=== PATIENT | female | born 1945 | race Caucasian/White ===

== ENCOUNTER 2016-06-01 11:26 | Inpatient (IN) | payer OTHER ==
[2016-06-01] MEDS ORDERED: ALBUTEROL NEB INH ONE (11:29)
[2016-06-01] MEDS ORDERED: ATIVAN ONE ×2 (11:29→18:25)
[2016-06-01] MEDS ORDERED: ATROVENT NEB INH ONE (11:29)
[2016-06-01] MEDS ORDERED: SOLU-MEDROL IV ONE (11:29)
[2016-06-01] MEDS ORDERED: DECADRON MISC ONE (11:29)
[2016-06-01 11:41] LABS: ALLEN TEST YES; BE 4.8 mmoll (-3.0-3.0); BLOOD TYPE ARTERIAL; DRAW SITE L RADIAL; METHB 1.5 % (0.0-1.5); O2(CT) 16.7 mL/dL (15.0-23.0); PO2(98.6) 111 mmHg (60-100); SAMPLE BLOOD; SAO2 99.7 % (95.0-100.0); THB 12.2 g/dL (11.5-17.4); pH(98.6) 7.36 (7.35-7.45)
[2016-06-01 11:46] LABS: MODALITY BI PAP; PCO2(98.6) 56 mmHg (35-45)
[2016-06-01] MEDS ORDERED: ATIVAN IV ONE (11:46)
--- NOTE | 2016-06-01 11:48 | PROVIDER DOCUMENTATION ---
HPI-Respiratory General - General Stated Complaint: SOB Time Seen by Provider: 06/01/16 11:28 Source: patient, EMS Allergies/Adverse Reactions: Patient Allergies Allergy/AdvReac Type Severity Reaction Status Date / Time No Known Allergies Allergy Verified 02/27/15 20:52 Home Medications: ATORVAstatin [Lipitor] 80 mg PO DAILY 06/01/16 Alprazolam [Xanax] 0.25 mg PO BID 06/01/16 Aspirin 81 mg PO DAILY 06/01/16 Escitalopram Oxalate [Lexapro] 5 mg PO DAILY 06/01/16 Fluticasone/Salmeterol [Advair 500-50 Diskus] 1 puff INH DIRECTED 06/01/16 Furosemide [Lasix] 80 mg PO BID 06/01/16 Potassium Chloride 20 meq PO DAILY 06/01/16 Prednisone 10 mg PO DIRECTED 06/01/16 Spironolactone 25 mg PO DAILY 06/01/16 Tiotropium Bentley Inhaler [Spiriva] 1 puff INH DIRECTED 06/01/16 - History of Present Illness-Resp Nature of Presenting Problem: Pt is 72 y/o F presents to the ED with SOB. EMS states SOB have been present for three weeks and has worsened as of today. EMS states Pt O2 was 78 on arrival. EMS Pt is on 6L O2 at home. EMS states Pt was diagnosed with pneumonia on May 03 and put on one round of Levaquin. EMS states Pt returned May 18 for check up and had a chest xray done and the pneumonia was still present. EMS states giving Pt 2 breathing treatments [employer]. Quality of Pain: reports: tightness Severity in ED: reports: severe Onset/Duration: reports: other (3 weeks) Timing: reports: still present, getting worse Exposure: reports: unknown cause Cough Quality/Degree: reports: moderate Episode Frequency: frequent episodes Current Respiratory Medication Therapy: Initiated see nurses note Modifying Factors: improves with: nothing Associated Symptoms: reports: cough, hyperventilating, shortness of breath, wheezing. denies: chest pain/soreness, facial pain, fever/chills, headache, nasal congestion Similar Symptoms Previously?: Yes Recently seen or treated by another doctor?: No Review of Systems - Adult - REVIEW OF SYSTEMS - ADULT Constitutional: denies: chills, fever Eyes: denies: blurred vision, double vision Ears, Nose, Mouth & Throat: denies: ear pain, nose pain, throat pain Cardiovascular: reports: irregular heart rate (tachy). denies: chest pain, heart murmur Respiratory: reports: cough, shortness of breath, wheezing Gastrointestinal: denies: abdominal pain, diarrhea, nausea, vomiting Genitourinary: denies: dysuria, hematuria Musculoskeletal: denies: bone pain, joint pain, neck pain Integumentary: denies: hives, itching Neurological: denies: dizziness/vertigo, headache/migraines Psychiatric: reports: no symptoms reported Endocrine: reports: no symptoms reported Hematologic/Lymphatic: reports: no symptoms reported Allergic/Immunologic: reports: no symptoms reported All Other Systems: Reviewed and Negative Past History - Adult - PAST MEDICAL HISTORY-ADULT Review of Records: reports: Nursing Assessment Review, Medications Reviewed, Social history reviewed & non-contributory. Major Childhood Illnesses: reports: denies history Cardiovascular: reports: HTN, hyperlipidemia Respiratory: reports: asthma, COPD, pneumonia Gastrointestinal: reports: denies history Obstetrical/Gynecological: reports: denies history Genitourinary: reports: denies history Musculoskeletal: reports: denies history Neurological: reports: CVA Endocrine/Immune: reports: denies history Other Conditions: reports: denies history - PRIOR SURGERIES/PROCEDURES Surgical/Procedure History: reports: breast - IMMUNIZATION STATUS Childhood Immunizations: See Nurse Assessment Flu Vaccine: See Nurse Assessment - FAMILY HISTORY Family History: reviewed, not pertinent - SOCIAL HISTORY Smoking: quit less than 1 year, cigarettes Provider spent 3-5 mins advising pt. on dangers of tobacco.: Discussed manners to quit use, and f/u contacts for add'l counseling. Substance Use: denies Living Situation: family Physical Exam-General - PHYSICAL EXAM-ADULT Initial Vital Signs Reviewed: Yes - CONSTITUTIONAL General Appearance: appears well, alert, severe distress, anxious - EYES Eyes: PERRL/EOMI, pink conjunctivae - HEAD, EARS, NOSE, MOUTH & THROAT HENMT: normocephalic/atraumatic, moist mucous membranes, normal ENT inspection - NECK Neck: non-tender, full range of motion, supple, normal inspection - RESPIRATORY Respiratory: chest non-tender, decreased breath sounds, accessory muscle use, wheezing, increased rate - CARDIOVASCULAR Cardiovascular: normal peripheral pulses, no edema, tachycardia - GASTROINTESTINAL (ABDOMEN) Abdominal Exam: normal bowel sounds, non tender, soft - LYMPHATIC Lymphatic: no adenopathy - MUSCULOSKELETAL Back Exam: normal inspection, no CVA tenderness, no vertebral tenderness Extremity: normal range of motion, non-tender, normal gait - SKIN Integumentary: normal color, normal turgor, warm/dry - NEUROLOGIC Neurologic: clearance rep II-XII nml as tested, grossly normal, no motor/sensory deficits - PSYCHIATRIC Psych/Mental Status: normal mood/affect, normal thought content, normal thought process, oriented x 3 Progress - PLAN OF CARE/RESULTS Progress/Plan/Lab Results: Laboratory Tests 06/01/16 11:36 Specimen Type ARTERIAL Sample Site L RADIAL pH 7.36 pCO2 56 H* pO2 111 H HCO3 28.7 H Base Excess 4.8 H Oxyhemoglobin 96.3 ABG O2 Sat (Calculated) 16.7 ABG O2 Saturation 99.7 ABG Carboxyhemoglobin 2.00 ABG Methemoglobin 1.5 Joseph Test YES A-a O2 Difference 176.0 Total Hemoglobin 12.2 Lactate 1.30 Blood Gas Modality BI PAP Vent Mode BIPAP FiO2 % 50.0 Inspiratory BiPAP 16.0 Expiratory BiPAP 6.0 Orders Category Date Time Status Cardiac Monitoring DIRECTED Care 06/01/16 11:29 Active Saline Loc NOW Care 06/01/16 11:29 Active CHEST-PORTABLE [RAD] Stat Exams 06/01/16 11:29 Ordered ABG [RESP] Routine Lab 06/01/16 11:36 Completed BLOOD CULTURE [BLDCUL] Stat Lab 06/01/16 11:43 Ordered CBC WITH ELECTRONIC DIFF [HEME] Stat Lab 06/01/16 11:43 Ordered CK PROFILE [SP CHEM] Stat Lab 06/01/16 11:43 Ordered COMPREHENSIVE METABOLIC PANEL [CHEM] Stat Lab 06/01/16 11:43 Ordered D-DIMER [CHEM] Stat Lab 06/01/16 11:43 Ordered MAGNESIUM [CHEM] Stat Lab 06/01/16 11:43 Ordered PRO B-NATRIURETIC PEPTIDE Stat Lab 06/01/16 11:43 Ordered PROTIME WITH INR [COAG] Stat Lab 06/01/16 11:43 Ordered PTT [COAG] Stat Lab 06/01/16 11:43 Ordered TROPONIN T Stat Lab 06/01/16 11:43 Ordered Albuterol [Albuterol Neb] Med 06/01/16 11:29 Discontinued 10 mg INH NOW ONE Dexamethasone [Decadron] Med 06/01/16 11:29 Discontinued 4 mg MISC NOW ONE Ipratropium Bentley Neb [Atrovent Neb] Med 06/01/16 11:29 Discontinued 0.5 mg INH NOW ONE Lorazepam [Ativan] Med 06/01/16 11:46 Discontinued 1 mg IV NOW ONE Lorazepam [Ativan] Med 06/01/16 11:29 Discontinued 2 mg .ROUTE .STK-MED ONE Methylprednisolone Sod Succ [Solu-Medrol] Med 06/01/16 11:29 Discontinued 125 mg IV NOW ONE Aerosol Treatments Routine Oth 06/01/16 11:32 Completed Aerosol Treatments Stat Oth 06/01/16 11:32 Completed EKG [EKG] Stat Ther 06/01/16 11:28 Ordered - EKG 1 Time of EKG reading by physician:: 11:38 EKG Read and Signed by:: Tramaine Street EKG Interpretation (*Must complete 3 of following elements*): Abnormal Rate: 131 Rhythm: sinus tachycardia Comments: nonspecific ST abnormality - XRAY 1 XRAY: Bilateral XRAY Study: Chest Impression: Abnormal XRAY Interpretation: mild pulmonary edema; emphysema - CONSULTS/PCP/HOSPITALIST Notification #1 *Consult/PCP/Hospitalist*: Dr. Whittington Time Discussed: 13:13 (Dr. Whittington accepted admit ) Reason/Comments: Dr. Street consulted with Dr. Whittington about admit of PT Consult Disposition: Admit Departure - Departure Time of Disposition Order: 13:03 DIAGNOSIS: COPD exacerbation, Respiratory distress CHF exacerbation Qualifiers: Congestive heart failure type: unspecified congestive heart failure type Qualified Code(s): I50.9 - Heart failure, unspecified Disposition: ADMITTED INPATIENT 09 Certified Medical Emergency: Emergent Condition: Stable Additional Instructions: ED Follow Up Instructions: You have been treated by a care provider in the Emergency Department. These instructions are being provided to you so you can have an understanding of how to care for yourself upon discharge. Upon discharge from the Emergency Department, you are responsible for making arrangements for follow-up care by a physician of your choice. Take all prescribed medications as directed. Return to the Emergency Department immediately for any new or worsening symptoms. You may call the Physician Referral phone number at [phone] to obtain a list of Physicians who are taking new patients. Referrals: None,PCP [Primary Care Provider] - Attestation - Scribe Verification/Attestation Scribe:: Keisha Carter Acting as Scribe for:: Tramaine Street Scribe documention review:: This chart was documented by a scribe and accurately reflects the service the provider performed and the decisions made by the provider.
[2016-06-01 12:04] LABS: BASO% 0.5 % (0.0-0.8); EOS# 0.06 X1000 (0.0-0.7); EOS% 0.4 % (0.0-10.0); HEMOGLOBIN 12.2 g/dL (12.0-16.0); IMM GRAN# 0.13 X1000 (0.0-0.04); IMM GRAN% 0.9 % (0.0-0.5); LYMPH# 3.76 X1000 (1.2-3.4); LYMPH% 25.3 % (20.5-51.1); MANUAL DIFF NEEDED? NO; MCH 25.9 PG (27-31); MCHC 31.3 g/dL (33-37); MCV 82.8 FL (81-99); MONO# 1.69 X1000 (0.11-0.59); MONO% 11.3 % (1.7-9.3); NEUT% 61.6 % (42.2-75.2); PLT 406 X1000 (130-400); RBC 4.71 XMIL (4.2-5.4)
[2016-06-01 12:06] LABS: AGAP 17; ALBUMIN 4.1 g/dL (3.5-5.0); ALKALINE PHOSPHATASE 86 U/L (32-104); BUN 15 mg/dL (8-22); CALCIUM 9.1 mg/dL (8.8-10.2); CHLORIDE 90 mmol/L (98-107); COSMO 273; GOT 46 U/L (10-30); GPT 17 U/L (10-36); MAGNESIUM 1.8 mg/dL (1.5-2.7); POTASSIUM 4.5 mmol/L (3.5-5.1); SODIUM 135 mmol/L (136-145); TCO2 28 mmol/L (25-35); TOTAL BILIRUBIN 0.35 mg/dL (0.20-1.00); TOTAL PROTEIN 7.5 g/dL (6.3-8.3)
--- NOTE | 2016-06-01 12:08 | Diag Imaging Result Document ---
PROCEDURE NAME: CHEST-PORTABLE - 06/01/2016 PORTABLE CHEST: COMPARISON: 02/27/2015. FINDINGS: The lungs are hyperexpanded. The heart is not enlarged. There are bilateral breast implants. No pleural effusion is identified. Mild increased interstitial markings. These are most pronounced in the upper right suprahilar region. IMPRESSION: 1. Increased interstitial markings likely representing mild pulmonary edema. 2. Suspect fibrosis in the upper right lung. 3. Emphysema.
[2016-06-01 12:09] LABS: CK PROFILE 447 U/L (24-173)
[2016-06-01] MEDS ORDERED: FLAGYL PO ONE (12:16)
[2016-06-01] MEDS ORDERED: LEVAQUIN PO ONE (12:16)
[2016-06-01] MEDS ORDERED: LASIX IV ONE (12:20)
[2016-06-01] MEDS ORDERED: LASIX ONE (12:21)
[2016-06-01 12:29] LABS: CK INDEX 1.7 (0.0-2.5); CK-MB 7.72 ng/mL (0.0-5.0)
[2016-06-01 12:36] LABS: INR 1.06; PROTIME 11.2 Seconds (9.2-11.7); PTT 26.8 Seconds (22.0-36.0)
--- NOTE | 2016-06-01 12:54 | EKG Report ---
Test Performed on : 06/01/2016 11:38:58 AM Test Reason : SOB Blood Pressure : / mmHG Vent. Rate : 131 BPM Atrial Rate : 131 BPM P-R Int : 126 ms QRS Dur : 066 ms QT Int : 288 ms P-R-T Axes : 051 -03 069 degrees QTc Int : 425 ms Sinus tachycardia. Nonspecific ST abnormality Abnormal ECG When compared with ECG of 27-FEB-2015 22:54, Criteria for Inferior infarct are no longer present ST now depressed in Lateral leads T wave amplitude has increased in Lateral leads Unconfirmed Result
[2016-06-01] MEDS ORDERED: LEVAQUIN 750 MG/D5W 150 ML IV ONE (13:12)
[2016-06-01 17:06] LABS: ALLEN TEST YES; BE 5.2 mmoll (-3.0-3.0); BLOOD TYPE ARTERIAL; DRAW SITE L RADIAL; METHB 1.7 % (0.0-1.5); O2(CT) 15.8 mL/dL (15.0-23.0); PO2(98.6) 88 mmHg (60-100); SAMPLE BLOOD; SAO2 99.2 % (95.0-100.0); THB 11.7 g/dL (11.5-17.4); pH(98.6) 7.37 (7.35-7.45)
[2016-06-01 17:11] LABS: MODALITY BI PAP; PCO2(98.6) 55 mmHg (35-45)
--- NOTE | 2016-06-01 17:21 | Diag Imaging Result Document ---
PROCEDURE NAME: CT THORAX W/CONTRAST - 06/01/2016 CT OF THE CHEST WITH INTRAVENOUS CONTRAST: COMPARISON: The current study is compared with that of 05/02/2016. FINDINGS: There are no abnormal fluid collections. There is no evidence of filling defect in the pulmonary arteries. Considering the lack of contrast on the previous study, there is no evidence of significant adenopathy or significant change in the mediastinum. There are emphysematous changes. Fibrotic scar formation is noted in the right upper lobe. The nodule/mass which was described on the previous study has not changed appreciably. There are some tree-in-bud opacities present in the superior segment of the right lower lobe, which were not present previously. This is also true of the area in the azygoesophageal recess. There are irregular opacities present in the medial posterior left costophrenic sulcus, which are similar in appearance to those present on the previous study. IMPRESSION: COPD with pneumonitis or early pneumonia in the right lower lobe. Otherwise stable since 05/02/2016.
--- NOTE | 2016-06-01 17:31 | HISTORY AND PHYSICAL ---
PCP: Dr. Silver Darnell. CHIEF COMPLAINT: Shortness of breath. HISTORY OF PRESENT ILLNESS: Mrs. Apodaca is 71-year-old female with a history of COPD on home oxygen, congestive heart failure, hypertension and hyperlipidemia who presents with severe shortness of breath that has been progressively worse over the past week. She was actually treated for pneumonia with oral antibiotics by Dr. Darnell at the end of last month but since then she has not had any relief in her shortness of breath. She has had increasing cough with yellow sputum production. She has also had subjective fever and chills. She reports lower extremity edema and occasional chest pain as well. 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 Further evaluation was recommended. The patient is also complaining of severe throat pain, difficulty swallowing and throat fullness. She has been unable to really eat or drink anything secondary to the throat pain. The patient when she arrived was in significant respiratory distress and required BiPAP therapy. Initial ABG actually showed only mild respiratory acidosis but she is breathing 30-40 times a minute currently. We are repeating another ABG now. We did discuss possible need for intubation and whether that is something that she would want. She did say that she was unsure at this time. Given her clinical picture, we are going to place her in the ICU and consult with pulmonology. PAST MEDICAL HISTORY: 1. COPD on home oxygen. 2. Congestive heart failure, type unknown. We do not have an echocardiogram on file. 3. Hypertension. 4. Hyperlipidemia. PAST SURGICAL HISTORY: She has had breast implants and a tubal ligation. SOCIAL HISTORY: Patient states that she quit smoking around 5 years ago. She denies alcohol or drug use. She is . She does have family here in [place]. FAMILY HISTORY: Mother with lung cancer. REVIEW OF SYSTEMS: Ten-point review of systems obtained and found to be negative with the exception of the HPI. PHYSICAL EXAMINATION: VITAL SIGNS: Blood pressure is 132/74, heart rate 111, respiratory rate is 33, O2 saturation is 95% on 4 L nasal cannula, temperature is 99.6 degrees. GENERAL: This is a critically ill-appearing, chronically appearing, disheveled and overall malnourished appearing 71-year-old female lying in hospital bed in respiratory distress. NEUROLOGIC: She is awake and anxious. She does follow commands without focal deficits. HEENT: Head is atraumatic, normocephalic. Pupils are equal, round, and reactive to light. Oral mucosa is dry. Trachea is midline. Oropharynx is quite red and edematous. CHEST: Extremely tight throughout but no appreciable wheezes. She does have occasional crackles in the bases. Her respiratory rate is in the 30s to 40s. Her chest rises symmetrically. CARDIOVASCULAR: Tachy but regular. S1-S2 is noted. No murmurs, gallops, clicks, or rubs. GI: Soft, nondistended, nontender. EXTREMITIES: 1+ edema bilaterally. Pulses are diminished. DIAGNOSTIC DATA: Chest x-ray shows interstitial increased markings likely representing mild pulmonary edema, suspected fibrosis in the right upper lung and emphysema. EKG shows sinus tachycardia with nonspecific ST changes. Blood work. WBC 14.89, hemoglobin 12.2, hematocrit 39, platelet count 406,000. Coagulations within normal limits. ABG on BiPAP 50% O2 , pH 7.36, CO2 56, O2 111, bicarb 28.7. Sodium 135, potassium 4.5, chloride 90, CO2 28, anion gap 17, BUN 15, creatinine 0.8, glucose 140, calcium 9.1, magnesium 1.8, AST 46, ALT 17, CK 447 , CK-MB 7.72, proBNP 264. Lactate 1.5. ASSESSMENT AND PLAN: 1. Acute hypoxic and hypercapnic respiratory failure: Likely multifactorial secondary to chronic obstructive pulmonary disease exacerbation and pneumonia. Will continue to try and increase her ventilation and oxygenation with BiPAP, we will treat her underlying COPD with steroids, nebulizers, antibiotics and aggressive pulmonary toilet. We will consult Cardiology and check daily chest x-rays as well as ABGs as needed. 2. Community-acquired pneumonia, failed outpatient treatment: Blood cultures have been obtained. Broad-spectrum antibiotics have also been initiated and pulmonary has been consulted. 3. Sepsis: Patient meets criteria for sepsis with tachycardia, leukocytosis and low-grade fever, tachypnea and pneumonia as a source. Blood culture, sputum cultures have been obtained. Continue broad-spectrum antibiotics and fluid resuscitation. Currently her blood pressure is stable and her lactic acid is within normal limits. 4. Chronic obstructive pulmonary disease exacerbation: As above. 5. 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 We will keep her NPO and continue antibiotics, we will swab for flu and strep as well. 6. Questionable lung cancer: The patient has evidence of carcinoma on CT last month. We are going to repeat a CTA with contrast now. We will also CT her neck, chest, abdomen and pelvis. Pulmonary has been consulted. Patient will likely need a biopsy. 7. History of congestive heart failure: Patient does not know what her ejection fraction is. We do not have any recent studies. Will check an echocardiogram and rule out PA with cardiac enzymes. Depending on the outcome she may need cardiology consultation. We will also lightly diuresis, follow strict I and Os and daily weights. 8. Gastrointestinal prophylaxis will be provided with Protonix. Deep vein thrombosis prophylaxis with Lovenox. Further recommendations to follow. Critical care time with this patient is 35 minutes. Dictated by KEO Jaime for Jani Whittington MD Patient seen and evaluated by Dov and I agree with RAMIRO Barahona's plans. Admit to ICU for worsening respiratory failure. Oxygen by BIPAP and recheck ABG later tonight. Consult to Pulmonology. Critically ill. Keep in ICU. Critical care time spent 29 min non including other separately billable procedures. ELIER
[2016-06-01] MEDS ORDERED: SPIRIVA INH SCH (17:37)
[2016-06-01] MEDS ORDERED: ADVAIR 500/50 DISKUS INH SCH (17:37)
[2016-06-01] MEDS ORDERED: VANCOMYCIN IV PER PHARMACY MISC SCH (17:37)
[2016-06-01 18:13] LABS: FREE T4 1.36 ng/dL (0.93-1.70)
[2016-06-01] MEDS: PROTONIX IV SCH (18:21)
[2016-06-01] MEDS: LOVENOX SUBQ SCH (18:21)
[2016-06-01] MEDS: SODIUM CHLORIDE 0.9% INJ SCH (18:21)
[2016-06-01] MEDS: NS 1,000 ML IV SCH (18:22)
[2016-06-01] MEDS: ZOSYN 3.375 GM/NS 50 ML IV SCH ×2 (18:22→23:53)
[2016-06-01] MEDS ORDERED: ATIVAN IV PRN (18:23)
[2016-06-01] MEDS: SOLU-MEDROL IV SCH (19:19)
[2016-06-01] MEDS ORDERED: VANCOMYCIN 1,450 MG in NS 250 ML IV ONE (20:00)
[2016-06-01] MEDS: DUONEB (A & A) INH SCH (20:37)
[2016-06-01] MEDS: XANAX PO SCH (21:06)
[2016-06-01 22:22] LABS: CK INDEX 2.2 (0.0-2.5); CK-MB 7.44 ng/mL (0.0-5.0)
[2016-06-02] MEDS: ATIVAN IV PRN ×3 (01:47→15:21)
[2016-06-02] MEDS: DUONEB (A & A) INH PRN ×2 (01:58→10:47)
[2016-06-02] MEDS: SOLU-MEDROL IV SCH ×3 (03:12→20:38)
[2016-06-02 05:00] LABS: ALLEN TEST YES; BLOOD TYPE ARTERIAL; DRAW SITE R RADIAL; METHB 1.7 % (0.0-1.5); O2(CT) 14.5 mL/dL (15.0-23.0); PO2(98.6) 80 mmHg (60-100); SAMPLE BLOOD; pH(98.6) 7.34 (7.35-7.45)
[2016-06-02 05:01] LABS: MODALITY BI PAP; PCO2(98.6) 64 mmHg (35-45)
[2016-06-02] MEDS: ZOSYN 3.375 GM/NS 50 ML IV SCH ×3 (05:05→17:01)
[2016-06-02 05:45] LABS: HEMATOCRIT 35.2 % (37.0-47.0); HEMOGLOBIN 10.9 g/dL (12.0-16.0); MCH 26.2 PG (27-31); MCV 84.6 FL (81-99); MPV 9.8 FL (7.4-10.4); RBC 4.16 XMIL (4.2-5.4)
[2016-06-02] MEDS: DUONEB (A & A) INH SCH ×5 (06:07→19:54)
[2016-06-02 06:36] LABS: AGAP 20; BUN 19 mg/dL (8-22); CALCIUM 8.9 mg/dL (8.8-10.2); CHLORIDE 96 mmol/L (98-107); COSMO 285; POTASSIUM 3.9 mmol/L (3.5-5.1); SODIUM 141 mmol/L (136-145); TCO2 25 mmol/L (25-35)
[2016-06-02 06:37] LABS: CK INDEX 2.8 (0.0-2.5); CK-MB 6.78 ng/mL (0.0-5.0)
--- NOTE | 2016-06-02 09:05 | Diag Imaging Result Document ---
PROCEDURE NAME: NECK W/CONTRAST - 06/02/2016 CT OF THE NECK WITH INTRAVENOUS CONTRAST: FINDINGS: The nasopharynx is unremarkable in appearance. There are no parapharyngeal masses or fluid collections. The study is somewhat suboptimal due to patient motion, however. The salivary glands are symmetrical in appearance. The epiglottis is not enlarged. The larynx is grossly normal appearance, considering the motion artifact. There is no evidence of significant adenopathy. The emphysematous change and right upper lobe mass(s) are again noted. IMPRESSION: Suboptimal study. No definite abnormality in the neck.
[2016-06-02] MEDS: NS 1,000 ML IV SCH (09:09)
--- NOTE | 2016-06-02 09:15 | Diag Imaging Result Document ---
PROCEDURE NAME: CT ABD/PELVIS W/ IV CONT ONLY - 06/02/2016 CT OF THE ABDOMEN WITH INTRAVENOUS CONTRAST: FINDINGS: There are some slight tree-in-bud opacities in the lung bases and suggestion or peribronchial thickening, which may be due to chronic bronchitis. There is a more well-defined opacity present in the posteromedial costophrenic sulcus of the left lower lobe measuring 13 mm in diameter. This is worse than on the previous study of 05/02/2016, but essentially stable since 06/01/2016. The possibility of a metastasis cannot be excluded. There is considerable respiratory motion. The adrenal glands are not enlarged. The spleen is not enlarged. The pancreas is normal in appearance. The kidneys are without evidence of hydronephrosis or mass. The liver is unremarkable. There are atherosclerotic calcifications in the aorta. The mesenteric vessels are patent. There is no evidence of significant adenopathy or abnormal fluid collection. CT OF THE PELVIS WITH INTRAVENOUS CONTRAST: FINDINGS: There is some subcutaneous gas over the right side, which is probably duet to subcutaneous injection. There is no evidence of appendicitis. There is a Daniels catheter in the bladder. There is mild diverticulosis in the sigmoid colon. There are no masses or adenopathy. There is calcium pyrophosphate deposition in the symphysis pubis and degenerative changes, generally, in the lumbar spine. IMPRESSION: No evidence of acute disease in the abdomen.
[2016-06-02] MEDS: LEXAPRO PO SCH (09:44)
[2016-06-02] MEDS: ALDACTONE PO SCH (09:44)
[2016-06-02] MEDS: ASPIRIN PO SCH (09:44)
[2016-06-02] MEDS: LIPITOR PO SCH (09:44)
[2016-06-02] MEDS: XANAX PO SCH ×2 (09:44→20:38)
--- NOTE | 2016-06-02 10:48 | PROGRESS NOTE ---
DATE: 06/02/2016 SUBJECTIVE: This patient is on BiPAP at this moment. We will try to put her on a nonrebreathing mask and, if she tolerates this, we can hold the BiPAP. Also, we will ask for a bedside swallow evaluation. This patient has been n.p.o. We will try with ice chips and then, if she tolerates, we can advance the diet. This patient looks anxious, but she is alert. She is oriented x3. I do not see any focal neurological deficits. She is still complaining of shortness of breath and cough. OBJECTIVE: Vital Signs: Temperature 98.3 degrees, pulse 108, respiratory rate 30, blood pressure 130/79, O2 saturation 95% on BiPAP. HEENT: Head normocephalic. No trauma. PERRLA. Neck supple. No JVD. No masses. Cardiovascular: RRR. No murmurs. Tachycardic. Chest: Decreased breath sounds globally. Generalized wheezing, prolonged expiatory phase. Abdomen soft, nontender, nondistended. No hepatosplenomegaly. Extremities: 1+ edema bilaterally. Pulses are diminished. No cyanosis. Neurologic: The patient is alert, anxious, oriented x3 complaining of [id number] respiratory distress. No focal neurological deficits. LABORATORY: WBC 10.2, hemoglobin 10.9, hematocrit 35.2, platelets 352,000. Sodium 141, potassium 3.9, chloride 96, bicarbonate 25. BUN 19, creatinine 0.8, glucose 131, calcium 8.9. ASSESSMENT AND PLAN: 1. Acute hypoxic and hypercapnic respiratory failure likely secondary to chronic obstructive pulmonary disease and pneumonia. This patient is using BiPAP. We will try to wean her off this treatment and put her on a nonrebreathing mask. If she tolerates that and the oxygen saturation does not drop, we will continue with this treatment. Also, a swallow evaluation is going to be done today at bedside to decide if this patient can take her p.o. medications and also to see if she can receive food. We are going to continue with daily ABGs and chest x- ray. Pulmonary Department has been consulted. 2. Community-acquired pneumonia. Failed outpatient treatment. Blood cultures, so far, negative. Influenza A and B negative. 3. Throat group A strep rapid antigen negative. We will continue with broad spectrum antibiotics and will monitor. 4. Sepsis. We will continue monitoring this patient. This patient still has tachycardia, but the blood pressure is controlled, and the leukocytosis decreased from 14.8-10.2. We will continue monitoring and treatment. 5. Chronic obstructive pulmonary disease exacerbation as above. 6. Throat pain likely related to multiple cough. We did a throat culture, pending, resolved. Negative rapid Strep test and influenza. 7. Questionable lung cancer. Apparently, this patient has carcinoma. We consulted the Pulmonary Department to evaluate this patient. We will follow their recommendation. 8. History of heart failure. The patient does not have any information with her. We do not have any records of heart failure. We will ask for an echocardiogram. CRITICAL CARE TIME: 40 minutes.
--- NOTE | 2016-06-02 13:33 | ECHO REPORT ---
ORDER DATE: 06/01/2016 STUDY: 2D, M-mode, color Doppler examination. TECHNIQUE: This is a technically limited study. INTERPRETATION: 1. The left ventricle is difficult to fully visualize but appears normal in size without obvious hypertrophy and with preserved overall systolic function. Estimated left ventricular ejection fraction is at least 60% or greater. 2. The left and right atria are intact. The right ventricle has preserved function. 3. There is no obvious pericardial effusion. There is an anterior echolucent space noted. This is consistent with fat pad. 4. The aortic valve is trileaflet. The leaflets are sclerotic without evidence for stenosis or insufficiency. 5. The mitral valve is intact. 6. The tricuspid valve is poorly visualized. 7. The peak pulmonary artery pressure is estimated to be around 35-40 mmHg.
--- NOTE | 2016-06-02 14:11 | CONSULTATION ---
DATE OF CONSULTATION: 06/02/2016 Thank you very much for asking me to see this very unfortunate 71-year-old female. I am pleased to assist in her care. DIAGNOSES: 1. Acute respiratory failure as a consequence of obesity, hypoventilation and chronic obstructive pulmonary disease. 2. Right lower lobe chest mass. 3. History of ethanol abuse. 4. Hypertension. 5. LV dysfunction. RECOMMENDATIONS: She will have bronchodilators delivered as well as broad- spectrum antibiotics. Inhaled beta agonists. I will wean her CPAP to nasal oxygen as her blood gas is improved. Monitor her volume status. Ultimately there needs to be an evaluation of the right lower lobe chest mass with fiberoptic bronchoscopy or CT-directed needle biopsy as it is apparently fairly suggestive of a neoplasm. I discuss this with the son. I will follow closely along with you. HISTORY: This very unfortunate 71-year-old female white with a known history of COPD and is oxygen and bronchodilator dependent at home. She however has a smoking history of approximately 50 pack year history and quit [address] scan was done previously in April demonstrating right lower lobe mass and this was redetected on the CT today. Subsequently she developed increasing lethargy and hypoxemia and presented to the emergency room where she was admitted to the ICU on CPAP and I am consulted to assist in her care. She had seen Dr. Zhou in [place] in the past but has never been worked up or followed here for her COPD. PAST MEDICAL HISTORY: Positive for COPD, as mentioned above. Congestive heart failure. Hypertension. Hyperlipidemia. SOCIAL HISTORY: She lives at home with her family. She is on home oxygen and bronchodilators. She does not currently drink. She does not currently smoke. PAST SURGICAL HISTORY: Positive for bilateral tubal ligation/BTL as well as bilateral breast implants in the past. FAMILY HISTORY: Positive for lung cancer. PHYSICAL EXAMINATION: Vital Signs: This kind, elderly lady shows a blood pressure of 124/72 with a pulse 101, respirations 24, temperature 96.9 degrees. HEENT: Reveals no thyromegaly or adenopathy. Pupils are equal and reactive. Extraocular muscles are intact. She has a BiPAP mask on. Chest: Reveals bilateral equal breath sounds with rhonchi and crackles. There is some prolongation of the expiratory phase. There are expiratory wheezes. There are symmetrical excursions. Cardiac: Reveals a regular rhythm without an appreciable murmur. Abdomen: Soft, nontender, mildly distended. Normal bowel sounds. Extremities: Reveal edema. Skin: Without rashes. Neurologically: She is awake and cooperative. Moves all 4. DIAGNOSTIC DATA: Her CT of the chest and x-ray shows hyperinflation. There is a right lower lobe chest mass. No adenopathy or effusion. There [place] [address] with a hemoglobin of 10.9, hematocrit 35.2, platelets of 352,000. ABG this morning shows pH of 7.34, Sharri of 64and PaO2of 80 O2 on CPAP 32% O2 with +6 and +18. Sodium is 141, potassium 3.9, chloride 96, CO2 25, BUN 18, creatinine 0.8, glucose 131. [facility]
[2016-06-02] MEDS: LEVAQUIN 750 MG/D5W 150 ML IV SCH (15:11)
[2016-06-02] MEDS: LOVENOX SUBQ SCH (17:01)
[2016-06-02] MEDS: PROTONIX IV SCH (17:01)
[2016-06-02] MEDS: VANCOMYCIN 1,150 MG in NS 250 ML IV SCH (20:38)
[2016-06-03] MEDS: ATIVAN IV PRN ×3 (00:05→18:24)
[2016-06-03] MEDS: ZOSYN 3.375 GM/NS 50 ML IV SCH ×5 (01:00→23:15)
[2016-06-03] MEDS: DUONEB (A & A) INH SCH ×4 (03:09→18:52)
[2016-06-03 05:00] LABS: HEMATOCRIT 31.3 % (37.0-47.0); HEMOGLOBIN 9.8 g/dL (12.0-16.0); MCH 26.4 PG (27-31); MCHC 31.3 g/dL (33-37); MCV 84.4 FL (81-99); MPV 9.5 FL (7.4-10.4); RBC 3.71 XMIL (4.2-5.4)
[2016-06-03 05:03] LABS: ALLEN TEST YES; BE 10.3 mmoll (-3.0-3.0); BLOOD TYPE ARTERIAL; DRAW SITE R RADIAL; METHB 2.1 % (0.0-1.5); PO2(98.6) 106 mmHg (60-100); SAMPLE BLOOD; SAO2 99.1 % (95.0-100.0); THB 10.3 g/dL (11.5-17.4); pH(98.6) 7.38 (7.35-7.45)
[2016-06-03 05:17] LABS: MODALITY BI PAP; PCO2(98.6) 63 mmHg (35-45)
[2016-06-03 05:43] LABS: AGAP 11; BUN 19 mg/dL (8-22); CALCIUM 8.7 mg/dL (8.8-10.2); CHLORIDE 102 mmol/L (98-107); COSMO 290; SODIUM 143 mmol/L (136-145); TCO2 30 mmol/L (25-35)
[2016-06-03] MEDS: SOLU-MEDROL IV SCH ×3 (05:45→20:00)
--- NOTE | 2016-06-03 08:11 | Diag Imaging Result Document ---
PROCEDURE NAME: CHEST-1 VIEW - 06/03/2016 AP PORTABLE CHEST AT 0500 HOURS: FINDINGS: The appearance of the chest has not changed significantly since 06/01/2016. The heart size and pulmonary vascularity are within normal limits. IMPRESSION: Stable chest.
[2016-06-03] MEDS: LEXAPRO PO SCH (08:44)
[2016-06-03] MEDS: XANAX PO SCH ×2 (08:45→20:01)
[2016-06-03] MEDS: LIPITOR PO SCH (08:45)
[2016-06-03] MEDS: ASPIRIN PO SCH (08:45)
[2016-06-03] MEDS: ALDACTONE PO SCH (08:45)
--- NOTE | 2016-06-03 10:15 | PROGRESS NOTE ---
DATE: 06/03/2016 SUBJECTIVE: This patient has been on BiPAP and nasal cannula. She looks really anxious. She is tolerating p.o. but her appetite is low. She is alert and oriented x3. She is complaining of shortness of breath and cough. OBJECTIVE: Vital Signs: Temperature 98.5 degrees, pulse 77, respiratory rate 18, blood pressure 110/65, O2 saturation on the monitor 91 on oxygen nasal cannula. HEENT: Head normocephalic. No trauma. PERRLA. Neck: Supple. No JVD. No masses. Cardiovascular: RRR. No murmurs. No gallops. No rubs. Chest: Decreased breath sounds globally. Generalized expiatory wheezing. Prolonged expiatory phase. Abdomen: Soft, nontender, nondistended. No hepatosplenomegaly. Extremities: No edema. No clubbing. No cyanosis. Neurological Examination: The patient is alert and oriented x3. She is anxious. She is complaining of moderate respiratory distress. No focal neurological deficit. Laboratory: WBC 17.1, hemoglobin 9.8, hematocrit 31.3, platelets 351,000. Sodium 143, potassium 4, chloride 102, bicarbonate 30, BUN 19, creatinine 0.7, glucose 143, calcium 8.7, magnesium 2.2. ASSESSMENT AND PLAN: 1. Acute hypoxic and hypercapnic respiratory failure, likely secondary to chronic obstructive pulmonary disease exacerbation and pneumonia. This patient has been using a BiPAP and also on and off nasal cannula. We will continue with the same treatment. She is getting antibiotics. She is getting steroids. She is getting oxygen and breathing treatment. Pulmonary department is following this patient. We will continue following their recommendations. 2. Community-acquired pneumonia. Failed outpatient treatment. Blood cultures so far have been negative. Influenza A and B negative. 3. Sepsis. We will continue monitoring this patient. She has been having tachycardia on and off. The blood pressure is controlled. 4. Leukocytosis. She has leukocytosis but this also can be related to steroids. 5. Chronic obstructive pulmonary disease exacerbation. As above. 6. Right lower lung mass. Possible this patient has lung cancer. Pulmonary department has recommended to get a biopsy once this patient is better. At this point, we are not sure if this is going to be as an inpatient or outpatient. 7. History of heart failure. This patient was told that she has heart failure. We did an echocardiogram that showed a normal ejection fraction of 60 and no diastolic problems. 8. I had a conversation with the patient about alcohol problems. She told me that she used to drink a long time ago and she stopped drinking 1 year ago. Apparently, she drank again two weeks ago. She drank wine but she told me that she did not get drunk. critical care time: 35 minutes ELIER
[2016-06-03] MEDS: NS 1,000 ML IV PRN (13:44)
[2016-06-03] MEDS: LEVAQUIN 750 MG/D5W 150 ML IV SCH (14:50)
[2016-06-03] MEDS: LOVENOX SUBQ SCH (17:06)
[2016-06-03] MEDS: PROTONIX IV SCH (17:06)
[2016-06-03] MEDS: SODIUM CHLORIDE 0.9% INJ SCH (17:06)
[2016-06-03] MEDS: ADVAIR 500/50 DISKUS INH SCH (18:51)
[2016-06-03] MEDS: VANCOMYCIN 1,150 MG in NS 250 ML IV SCH (20:57)
[2016-06-04] MEDS: DUONEB (A & A) INH SCH ×4 (03:11→20:17)
[2016-06-04] MEDS: ATIVAN IV PRN ×2 (03:48→13:47)
[2016-06-04] MEDS: SOLU-MEDROL IV SCH ×3 (03:48→20:09)
[2016-06-04 04:46] LABS: ALLEN TEST YES; BE 7.6 mmoll (-3.0-3.0); BLOOD TYPE ARTERIAL; DRAW SITE R RADIAL; METHB 0.9 % (0.0-1.5); O2(CT) 20.6 mL/dL (15.0-23.0); PO2(98.6) 109 mmHg (60-100); SAMPLE BLOOD; SAO2 100.3 % (95.0-100.0); pH(98.6) 7.35 (7.35-7.45)
[2016-06-04 04:48] LABS: MODALITY BI PAP; PCO2(98.6) 65 mmHg (35-45)
[2016-06-04 04:56] LABS: HEMATOCRIT 32.5 % (37.0-47.0); HEMOGLOBIN 9.8 g/dL (12.0-16.0); MCH 26.1 PG (27-31); MCHC 30.2 g/dL (33-37); MCV 86.4 FL (81-99); MPV 9.8 FL (7.4-10.4); RBC 3.76 XMIL (4.2-5.4)
[2016-06-04 05:32] LABS: AGAP 9; BUN 21 mg/dL (8-22); CALCIUM 8.9 mg/dL (8.8-10.2); CHLORIDE 105 mmol/L (98-107); COSMO 294; POTASSIUM 4.2 mmol/L (3.5-5.1); SODIUM 145 mmol/L (136-145); TCO2 31 mmol/L (25-35)
[2016-06-04] MEDS: ZOSYN 3.375 GM/NS 50 ML IV SCH ×3 (05:36→17:05)
[2016-06-04] MEDS: ADVAIR 500/50 DISKUS INH SCH ×2 (07:25→20:17)
[2016-06-04] MEDS: SPIRIVA INH SCH (07:25)
--- NOTE | 2016-06-04 08:06 | Diag Imaging Result Document ---
PROCEDURE NAME: CHEST-1 VIEW - 06/04/2016 AP PORTABLE CHEST AT 0500 HOURS: FINDINGS: The appearance of the chest has not changed significantly since 06/03/2016. IMPRESSION: Stable chest.
[2016-06-04] MEDS: LIPITOR PO SCH (08:58)
--- NOTE | 2016-06-04 08:58 | PROGRESS NOTE ---
DATE: 06/04/2016 SUBJECTIVE: This patient has been on BiPAP, but now she is on nasal cannula. She really looks anxious. She is tolerating p.o. but her appetite is slow. She is alert and oriented x3. She is still complaining of shortness of breath and cough. OBJECTIVE: Vital Signs: Temperature 98.9 degrees, pulse 79, respiratory rate 23, blood pressure 130/75, oxygen saturation 95% on 4 L of nasal cannula. HEENT: Head normocephalic. No trauma. PERRLA. Neck: Supple. No JVD. No masses. Cardiovascular: RRR. No murmurs. No gallops. No rubs. Chest: Decreased breath sounds globally, generalized expiatory wheezing. Prolonged expiratory phase and generalized rhonchi. Abdomen: Soft, nontender, nondistended. No hepatosplenomegaly. Extremities: No edema. No clubbing. No cyanosis. Neurological: The patient is alert and oriented x3. No focal motor deficits. She is anxious. LABORATORIES: WBC 16.8, hemoglobin 9.8, hematocrit 32.5. Sodium 145, potassium 4.2, chloride 105, bicarbonate 31, BUN 21, creatinine 0.7. Glucose 143, calcium 8.9, magnesium 2.4. ASSESSMENT AND PLAN: 1. Acute hypoxic and hypercapnic respiratory failure likely secondary to chronic obstructive pulmonary disease exacerbation and pneumonia. This patient has been using BiPAP but at this moment she is on nasal cannula and the oxygen saturation has been fine. We will continue with the same treatment. Pulmonary department is following this patient. We will follow their recommendations. 2. Community-acquired pneumonia. Failed outpatient treatment. Blood culture has been negative so far. Influenza A and B negative. 3. Sepsis. We will continue monitoring this patient. She has been having increased WBC, but this also could be related to steroid use. 4. Leukocytosis. As mentioned before, this also can be related to steroids and infectious process. 5. Chronic obstructive pulmonary disease exacerbation. We will continue with aggressive pulmonary treatment, nebulizer and oxygen. She is getting also steroids. 6. Right lower lung mass. It is possible this patient has lung cancer. Pulmonary department has recommended to get a biopsy once the patient is better. At this point, we are not sure if this is going to be as an inpatient or outpatient. 7. History of heart failure. This patient was told that she has heart failure with an echocardiogram that showed a normal ejection fraction of 60 and no diastolic problems. TIME SPENT: 30 minutes.
[2016-06-04] MEDS: ALDACTONE PO SCH (08:59)
[2016-06-04] MEDS: LEXAPRO PO SCH (09:00)
[2016-06-04] MEDS: ASPIRIN PO SCH (09:00)
[2016-06-04] MEDS: XANAX PO SCH ×2 (09:02→21:20)
[2016-06-04] MEDS: NS 1,000 ML IV PRN (13:50)
[2016-06-04] MEDS: TUSSIONEX LIQUID PO SCH ×2 (14:14→21:20)
[2016-06-04] MEDS: LEVAQUIN 750 MG/D5W 150 ML IV SCH (14:22)
[2016-06-04] MEDS: SODIUM CHLORIDE 0.9% INJ SCH (17:05)
[2016-06-04] MEDS: PROTONIX IV SCH (17:05)
[2016-06-04] MEDS: LOVENOX SUBQ SCH (17:05)
[2016-06-04] MEDS: VANCOMYCIN 1,700 MG in NS 250 ML IV SCH (21:57)
[2016-06-05] MEDS: ZOSYN 3.375 GM/NS 50 ML IV SCH ×4 (01:11→17:03)
[2016-06-05] MEDS: DUONEB (A & A) INH SCH ×4 (02:58→19:25)
[2016-06-05] MEDS: SOLU-MEDROL IV SCH ×3 (04:20→19:54)
[2016-06-05 05:32] LABS: BASO% 0.1 % (0.0-0.8); HEMATOCRIT 32.3 % (37.0-47.0); HEMOGLOBIN 9.9 g/dL (12.0-16.0); IMM GRAN# 0.13 X1000 (0.0-0.04); IMM GRAN% 0.8 % (0.0-0.5); LYMPH# 1.42 X1000 (1.2-3.4); LYMPH% 9.1 % (20.5-51.1); MANUAL DIFF NEEDED? YES; MCH 26.2 PG (27-31); MCHC 30.7 g/dL (33-37); MCV 85.4 FL (81-99); MONO# 1.42 X1000 (0.11-0.59); MONO% 9.1 % (1.7-9.3); MPV 9.9 FL (7.4-10.4); NEUT% 80.9 % (42.2-75.2); PLT 367 X1000 (130-400); RBC 3.78 XMIL (4.2-5.4)
[2016-06-05 05:33] LABS: AGAP 10; BUN 22 mg/dL (8-22); CALCIUM 9.1 mg/dL (8.8-10.2); CHLORIDE 106 mmol/L (98-107); COSMO 300; POTASSIUM 4.3 mmol/L (3.5-5.1); SODIUM 148 mmol/L (136-145); TCO2 32 mmol/L (25-35)
[2016-06-05 06:13] LABS: BANDS 4 % (0-1); LYMPHS 12 % (21-51); MONO 8 % (1-9)
[2016-06-05] MEDS: TUSSIONEX LIQUID PO SCH ×2 (08:55→21:22)
[2016-06-05] MEDS: LIPITOR PO SCH (08:55)
[2016-06-05] MEDS: ASPIRIN PO SCH (08:56)
[2016-06-05] MEDS: XANAX PO SCH ×2 (08:56→21:22)
[2016-06-05] MEDS: ALDACTONE PO SCH (08:56)
[2016-06-05] MEDS: LEXAPRO PO SCH (08:56)
[2016-06-05] MEDS: ATIVAN IV PRN ×2 (09:04→19:06)
[2016-06-05] MEDS: SPIRIVA INH SCH (09:10)
[2016-06-05] MEDS: ADVAIR 500/50 DISKUS INH SCH ×2 (09:10→19:25)
--- NOTE | 2016-06-05 12:40 | PROGRESS NOTE ---
DATE: 06/05/2016 SUBJECTIVE: Today Ms. Apodaca refers to be doing okay. Still continues to have some respiratory distress obviously. OBJECTIVE: Vital Signs: Stable. Blood pressure is 171/85, pulse of 97, respirations 22, temperature 97.6 degrees. General: Ms. Apodaca is a 71-year-old female. She is in bed. She seems to be in some respiratory distress. HEENT: Mucosa is pink and moist. Anicteric. Acyanotic. Neck: Supple. Chest: Air entry is bilaterally reduced with a few diffuse bilateral end-expiratory wheezes and bilateral crepitations as well. 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 Follows commands. Moves all extremities. Abdomen: Soft, nontender. Bowel sounds were present. Extremities: No pedal edema. Intake and output: The patient has a Daniels catheter and there is 925 urine charted. LABORATORY DATA: WBC is 15.60, hemoglobin is 9.9, platelet count is 365,000. Sodium is 140, potassium is 4.3, chloride is 106, bicarb is 32, and glucose is 138. There is no ABG for this morning. ASSESSMENT: 1. Acute mixed respiratory failure, secondary to chronic obstructive pulmonary disease exacerbation and possible pneumonia. Will continue with aggressive pulmonary toilet, antibiotics, and steroids. The patient will use BiPAP p.r.n. for now. Will continue with supplemental oxygenation. 2. Community-acquired pneumonia with failed outpatient therapy. So far sputum cultures have been unremarkable. Blood cultures are also negative for the past 48 hours. Patient is currently on levofloxacin and Zosyn and also vancomycin. Will continue this therapy for 1 more day and then will start cutting down on the antibiotics. 3. Chronic obstructive pulmonary disease exacerbation. The patient is on medication as #1. 4. Right upper lobe mass suspicious for carcinoma. I think the patient will need this to be addressed. However, at this point in time, we will take care of the acute exacerbation of the COPD since this can be investigated even as an outpatient. 5. History of diastolic heart failure. Noted. 6. Anxiety disorder. Patient is on medications. MEDICATIONS: Currently the patient's medications include: 1. Albuterol inhaler. 2. Atorvastatin 80 mg daily. 3. Aspirin 81 mg daily. 4. Lovenox 48 subcutaneously. 5. Escitalopram 5 mg daily. 6. Lovenox 750 daily. 7. Solu-Medrol 60 IV q.8. 8. Vancomycin. 9. Zosyn 3.375. 10. Aldactone 35 daily. PLAN: For now we are going to discontinue the IV normal saline since patient looks euvolemic. However, her sodium is 148. Will encourage oral hydration and recheck on her labs tomorrow morning. For today we are still going to observe the patient here in the unit and see how she does.
[2016-06-05] MEDS ORDERED: D5W 1,000 ML IV SCH (13:00)
[2016-06-05] MEDS: LEVAQUIN 750 MG/D5W 150 ML IV SCH (14:10)
[2016-06-05] MEDS: SODIUM CHLORIDE 0.9% INJ SCH (17:03)
[2016-06-05] MEDS: LOVENOX SUBQ SCH (17:03)
[2016-06-05] MEDS: PROTONIX IV SCH (17:03)
[2016-06-05] MEDS: CLINIMIX E 4.25%-5% SOLUTION 1,000 ML IV SCH (21:22)
[2016-06-05] MEDS: VANCOMYCIN 1,700 MG in NS 250 ML IV SCH (22:58)
[2016-06-06] MEDS: ZOSYN 3.375 GM/NS 50 ML IV SCH ×4 (00:40→17:22)
[2016-06-06] MEDS: DUONEB (A & A) INH SCH ×4 (03:00→19:11)
[2016-06-06] MEDS: SOLU-MEDROL IV SCH ×3 (03:10→19:35)
[2016-06-06 04:51] LABS: ALLEN TEST YES; BE 9.6 mmoll (-3.0-3.0); BLOOD TYPE ARTERIAL; DRAW SITE R RADIAL; METHB 1.8 % (0.0-1.5); O2(CT) 14.4 mL/dL (15.0-23.0); PO2(98.6) 126 mmHg (60-100); SAMPLE BLOOD; SAO2 99.3 % (95.0-100.0); THB 10.5 g/dL (11.5-17.4); pH(98.6) 7.39 (7.35-7.45)
[2016-06-06 04:52] LABS: MODALITY BI PAP; PCO2(98.6) 60 mmHg (35-45)
[2016-06-06] MEDS: ATIVAN IV PRN ×4 (05:07→23:38)
[2016-06-06] MEDS: DUONEB (A & A) INH PRN (05:19)
[2016-06-06 06:03] LABS: HEMATOCRIT 32.3 % (37.0-47.0); HEMOGLOBIN 9.8 g/dL (12.0-16.0); MCH 26.2 PG (27-31); MCHC 30.3 g/dL (33-37); MCV 86.4 FL (81-99); MPV 9.8 FL (7.4-10.4); RBC 3.74 XMIL (4.2-5.4)
[2016-06-06 06:21] LABS: ALBUMIN 2.9 g/dL (3.5-5.0); MAGNESIUM 2.4 mg/dL (1.5-2.7); POTASSIUM 3.9 mmol/L (3.5-5.1); TOTAL BILIRUBIN 0.15 mg/dL (0.20-1.00); TOTAL PROTEIN 5.5 g/dL (6.3-8.3)
--- NOTE | 2016-06-06 07:43 | Diag Imaging Result Document ---
PROCEDURE NAME: CHEST-PORTABLE - 06/06/2016 SINGLE FRONTAL RADIOGRAPHIC OF THE CHEST: COMPARISON: 06/04/2016. FINDINGS: There is a right upper lobe lung nodule that is stable. No new consolidations are identified. Cardiac silhouette is stable. IMPRESSION: Stable chest.
[2016-06-06] MEDS: SPIRIVA INH SCH (07:49)
[2016-06-06] MEDS: ADVAIR 500/50 DISKUS INH SCH ×2 (07:50→19:13)
[2016-06-06] MEDS: ALDACTONE PO SCH (08:08)
[2016-06-06] MEDS: LIPITOR PO SCH (08:08)
[2016-06-06] MEDS: LEXAPRO PO SCH (08:08)
[2016-06-06] MEDS: ASPIRIN PO SCH (08:09)
[2016-06-06] MEDS: XANAX PO SCH ×3 (08:09→21:45)
[2016-06-06] MEDS: TUSSIONEX LIQUID PO SCH ×3 (08:09→21:45)
[2016-06-06] MEDS: CLINIMIX E 4.25%-5% SOLUTION 1,000 ML IV SCH (09:27)
[2016-06-06] MEDS ORDERED: D5W 1,000 ML IV SCH (10:30)
[2016-06-06] MEDS: LASIX IV SCH ×2 (10:39→17:31)
[2016-06-06] MEDS: LEVAQUIN 750 MG/D5W 150 ML IV SCH (14:51)
--- NOTE | 2016-06-06 15:30 | PROGRESS NOTE ---
DATE: 06/06/2016 Today Ms. Apodaca refers to be doing a little better. I saw her. She was on the BiPAP. OBJECTIVE: Vitals: Stable, blood pressure is 144/81, pulse of 93, respirations temperature 97.7 degrees. General: Ms. Apodaca is a 71-year-old female. She is in bed, does not seem to be in any major distress. She is synchronizing very well with the BiPAP. Chest: Air entry is bilaterally reduced. There is end exploratory wheezes and bilateral crepitations in the lung field. Cardiovascular: Regular rate and rhythm. No murmurs, no rubs. Abdomen: Soft, nontender. Extremities: No pedal edema. 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 I'S O'S: Urine output 1250. Positive balance of 259. LABORATORY DATA: WBC is 16.82, hemoglobin is 9.8, platelet count of 335,000. Chemistry: Sodium is 146, potassium is 3.9, chloride is 106, creatinine is 1.1. A chest x-ray this morning shows a right upper lobe lung nodule. No new consolidations. Cardiac silhouette is stable. ASSESSMENT: 1. Acute mixed respiratory failure, secondary to COPD exacerbation and possible pneumonia. Patient is currently on antibiotics, steroids and pulmonary bronchodilators. Will continue BiPAP use. 2. Community-acquired pneumonia with failed outpatient therapy. The patient is currently on IV antibiotics. We plan to continue this. 3. COPD exacerbation. 4. Right upper lobe mass suspicious for carcinoma. Patient will need to address this when she is a little bit more stable from the lung standpoint. 5. History of diastolic heart failure noted. 6. Anxiety disorder. 7. Leukocytosis which I think now is more reactive to steroid use. PLAN: The patient continues to be needing the BiPAP. We are going to observe her another day in the ICU. We will continue with aggressive pulmonary toilet, steroid and antibiotics, the use of the BiPAP. Hopefully we might be able to transfer her in about a day or 2 to the regular floor.
[2016-06-06] MEDS: SODIUM CHLORIDE 0.9% INJ SCH (17:23)
[2016-06-06] MEDS: PROTONIX IV SCH (17:23)
[2016-06-06] MEDS: LOVENOX SUBQ SCH (17:23)
[2016-06-06] MEDS: VANCOMYCIN 1,700 MG in NS 250 ML IV SCH (22:17)
[2016-06-07] MEDS: ZOSYN 3.375 GM/NS 50 ML IV SCH ×5 (00:30→23:50)
[2016-06-07] MEDS: CLINIMIX E 4.25%-5% SOLUTION 1,000 ML IV SCH ×2 (00:30→13:34)
[2016-06-07] MEDS: LASIX IV SCH (01:49)
[2016-06-07] MEDS: SOLU-MEDROL IV SCH ×3 (03:11→19:58)
[2016-06-07] MEDS: DUONEB (A & A) INH SCH ×4 (03:31→19:48)
[2016-06-07 04:47] LABS: ALLEN TEST YES; BE 16.9 mmoll (-3.0-3.0); BLOOD TYPE ARTERIAL; DRAW SITE R RADIAL; METHB 1.5 % (0.0-1.5); O2(CT) 15.2 mL/dL (15.0-23.0); PCO2(98.6) 42 mmHg (35-45); PO2(98.6) 188 mmHg (60-100); SAMPLE BLOOD; SAO2 100.3 % (95.0-100.0); THB 10.8 g/dL (11.5-17.4)
[2016-06-07 04:48] LABS: MODALITY BI PAP; pH(98.6) 7.59 (7.35-7.45)
[2016-06-07 05:16] LABS: ALBUMIN 3.1 g/dL (3.5-5.0); CALCIUM 8.7 mg/dL (8.8-10.2); MAGNESIUM 1.9 mg/dL (1.5-2.7); POTASSIUM 3.9 mmol/L (3.5-5.1); TOTAL BILIRUBIN 0.2 mg/dL (0.20-1.00); TOTAL PROTEIN 5.7 g/dL (6.3-8.3)
--- NOTE | 2016-06-07 07:32 | Diag Imaging Result Document ---
PROCEDURE NAME: CHEST-PORTABLE - 06/07/2016 PORTABLE CHEST X-RAY, 06/07/2016: COMPARISON: 06/06/2016. FINDINGS: Stable nodular density in the right upper lobe. No new or focal infiltrates. Heart size remains normal. IMPRESSION: No change from prior.
[2016-06-07] MEDS: SPIRIVA INH SCH (08:06)
[2016-06-07] MEDS: ADVAIR 500/50 DISKUS INH SCH ×2 (08:07→19:47)
[2016-06-07] MEDS: TUSSIONEX LIQUID PO SCH ×2 (08:37→20:00)
[2016-06-07] MEDS: LIPITOR PO SCH (08:37)
[2016-06-07] MEDS: ASPIRIN PO SCH (08:38)
[2016-06-07] MEDS: LEXAPRO PO SCH (08:38)
[2016-06-07] MEDS: XANAX PO SCH ×2 (08:38→20:01)
[2016-06-07] MEDS: ATIVAN IV PRN (09:17)
[2016-06-07] MEDS: MORPHINE IV PRN (14:43)
--- NOTE | 2016-06-07 14:58 | PROGRESS NOTE ---
DATE: 05/07/2017 Today Ms. Apodaca referred to be doing a whole lot better. Early on this morning she went into some form of anxiety attack and had to be placed back on the ventilator. OBJECTIVE: Vital signs: Blood pressure is 176/110, pulse of 100, respiration is 20, temperature 97.8 degrees. General: Ms. Apodaca is a 61-year-old . She was sitting up in the bed. Mild respiratory distress. HEENT: Mucosa is pink and moist. Anicteric. Acyanotic. Neck: Supple. Chest: Air entry is bilaterally reduced. There is some end expiratory wheezes but no crepitations. Cardiovascular: Regular rate and rhythm. Abdomen: Soft, nontender. Bowel sounds are present. 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 Follows commands. No focal neurological deficit. LABORATORY DATA: WBC is 16.18, that was for yesterday. This morning, the sodium is 141, potassium is 3.9, chloride is 95. Bicarb is 14. BUN is 43, creatinine is 1.3. PATIENT MEDICATIONS INCLUDE: 1. Albuterol nebs. 2. Clinimix. 3. Lipitor 80 daily. 4. Lovenox 40 subcutaneous. 5. Lexapro 5 mg daily. 6. Furosemide 60. Got it only 1 time. 7. Levofloxacin 150 daily. 8. Solu-Medrol 60 mg IV. 9. Vancomycin. 10. Zosyn. 11. Advair inhaler. 12. Spiriva inhaler. A chest x-ray this morning shows no remarkable changes overnight. ASSESSMENT: 1. Acute mixed respiratory failure, secondary to COPD and possible pneumonia. Patient is on bronchodilators, steroids, levofloxacin, Zosyn and vancomycin. Today is day 5 on the antibiotics. 2. Community-acquired pneumonia with failed outpatient therapy. 3. COPD exacerbation. 4. Right upper lobe mass suspicious for carcinoma. 5. History of diastolic heart failure. 6. Anxiety disorder. 7. Mild JULIO CESAR. 8. Leukocytosis which could be combination of infection as well as steroid use. Our general plan today, we are going to increase patient's Clinimix to 100 mL/h because of mild renal failure just to help to perfuse the kidney. We will continue with the current antibiotics and bronchodilator therapy. We will add low-dose morphine 2 mg IV q.4 p.r.n. to help with some of the shortness of breath and as well as some pain discomfort. We will continue observing the patient in critical care. We will also discontinue the patient's diuretics including the spironolactone.
[2016-06-07] MEDS: LEVAQUIN 750 MG/D5W 150 ML IV SCH (16:35)
[2016-06-07] MEDS: PROTONIX IV SCH (17:32)
[2016-06-07] MEDS: SODIUM CHLORIDE 0.9% INJ SCH (17:32)
[2016-06-07] MEDS: LOVENOX SUBQ SCH (17:32)
[2016-06-07] MEDS ORDERED: LASIX IV ONE (21:00)
[2016-06-07] MEDS: VANCOMYCIN 1,700 MG in NS 250 ML IV SCH (21:15)
[2016-06-07] MEDS: DUONEB (A & A) INH PRN (22:57)
[2016-06-08] MEDS: CLINIMIX E 4.25%-5% SOLUTION 1,000 ML IV SCH ×3 (01:10→17:39)
[2016-06-08] MEDS: SOLU-MEDROL IV SCH ×3 (03:19→19:59)
[2016-06-08] MEDS: DUONEB (A & A) INH SCH ×4 (03:42→19:54)
[2016-06-08] MEDS: ZOSYN 3.375 GM/NS 50 ML IV SCH ×3 (05:33→17:40)
[2016-06-08 05:57] LABS: CALCIUM 9.1 mg/dL (8.8-10.2); MAGNESIUM 2.1 mg/dL (1.5-2.7); POTASSIUM 3.7 mmol/L (3.5-5.1)
[2016-06-08] MEDS: ADVAIR 500/50 DISKUS INH SCH ×2 (06:33→19:53)
[2016-06-08] MEDS: SPIRIVA INH SCH (06:33)
[2016-06-08] MEDS: MORPHINE IV PRN (07:37)
[2016-06-08] MEDS: LEXAPRO PO SCH (08:17)
[2016-06-08] MEDS: TUSSIONEX LIQUID PO SCH ×2 (08:17→19:59)
[2016-06-08] MEDS: XANAX PO SCH ×2 (08:17→21:14)
[2016-06-08] MEDS: LIPITOR PO SCH (08:17)
[2016-06-08] MEDS: ASPIRIN PO SCH (08:17)
[2016-06-08] MEDS: VANCOMYCIN 1,300 MG in NS 250 ML IV SCH (08:33)
--- NOTE | 2016-06-08 11:27 | PROGRESS NOTE ---
DATE: 06/08/2016 SUBJECTIVE: This 71-year-old female presented with shortness of breath, a patient of Dr. Darnell, with history of COPD on home O2, congestive heart failure, hypertension, and hyperlipidemia who presented with severe shortness of breath that has been progressively worse over the past week. She was actually treated for pneumonia with oral antibiotics by Dr. Darnell in the last month but, since that time, she has not had any relief of shortness of breath, had increasing cough, sputum production, subjective fever and chills. She presented and they treated her for: 1. Acute hypoxic and hypercapnic respiratory failure, likely multifactorial secondary to chronic obstructive pulmonary disease exacerbation and pneumonia. Continued to try to increase her ventilation oxygenation with the BiPAP, eventually able to get her off BiPAP. She is on steroids, nebulizers, antibiotics, and aggressive pulmonary toilet. 2. Community acquired pneumonia. Broad-spectrum antibiotics have been initiated and can narrow those down. 3. Sepsis, improved. Met criteria of sepsis with tachycardia, leukocytosis, low-grade fever, tachypneic, suspect pulmonary source. 4. Chronic obstructive pulmonary disease. 5. Severe throat pain, which is better. She had a CT of the neck, recent CT of the lungs, which showed scar carcinoma. Continue NPO. Continue antibiotics. Swab for flu and strep. 6. Questionable lung cancer. The patient had evidence of carcinoma on CT last month. Going to treat with repeated CTA with contrast and I believe we have obtained a biopsy. OBJECTIVE: General: Have reviewed her exam today. She complains of some trouble breathing. She appears to be comfortable and resting. Vital Signs: Temp 98 degrees. Pulse 106. Respirations 22. Blood pressure 159/83. Lungs: Clear with end-expiratory wheezing, prolonged expiratory rate. Cardiovascular Exam: Regular rhythm and rate without murmur or S3. Abdomen: Soft. Skin: Warm and dry. INTAKE AND OUTPUT: Good urine output. REVIEW OF ORDERS: She is on vancomycin. She is on Zosyn and Levaquin. She is getting breathing treatments. She is on methylprednisone 60 mg IV q.8. I think the plan is to pursue a CT angiogram when able. She had a neck CT in May, a suboptimal study, no definite abnormality in the neck. She had abdominal and pelvic CT done at the end of May. No evidence of acute disease. Echocardiogram done in May. Left ventricle difficult to fully visualize, ejection fraction 60% or greater, no valvular abnormality appreciated. Dr. Han was consulted and saw her on the . She has a right lower lobe chest mass.
[2016-06-08] MEDS: DUONEB (A & A) INH PRN (11:29)
[2016-06-08] MEDS: LEVAQUIN 750 MG/D5W 150 ML IV SCH (14:31)
[2016-06-08] MEDS: PROTONIX IV SCH (17:40)
[2016-06-08] MEDS: SODIUM CHLORIDE 0.9% INJ SCH (17:40)
[2016-06-08] MEDS: LOVENOX SUBQ SCH (17:40)
[2016-06-08] MEDS: PHENOBARBITAL IV PRN (19:59)
[2016-06-08] MEDS: ATIVAN IV PRN (22:13)
[2016-06-09] MEDS: ZOSYN 3.375 GM/NS 50 ML IV SCH ×5 (00:26→23:38)
[2016-06-09] MEDS: DUONEB (A & A) INH SCH ×4 (03:14→20:45)
[2016-06-09] MEDS: SOLU-MEDROL IV SCH ×3 (03:27→19:52)
[2016-06-09] MEDS: CLINIMIX E 4.25%-5% SOLUTION 1,000 ML IV SCH ×2 (03:27→08:07)
[2016-06-09 04:42] LABS: BE 16.3 mmoll (-3.0-3.0); BLOOD TYPE ARTERIAL; DRAW SITE R RADIAL; METHB 1.5 % (0.0-1.5); PO2(98.6) 94 mmHg (60-100); SAMPLE BLOOD; SAO2 99.3 % (95.0-100.0); THB 14.9 g/dL (11.5-17.4); pH(98.6) 7.42 (7.35-7.45)
[2016-06-09 04:43] LABS: ALLEN TEST YES; MODALITY BI PAP
[2016-06-09 04:44] LABS: PCO2(98.6) 69 mmHg (35-45)
[2016-06-09 06:51] LABS: HEMATOCRIT 31.9 % (37.0-47.0); HEMOGLOBIN 9.9 g/dL (12.0-16.0); MCV 83.7 FL (81-99); MPV 9.9 FL (7.4-10.4); RBC 3.81 XMIL (4.2-5.4)
[2016-06-09 07:08] LABS: AGAP 8; ALKALINE PHOSPHATASE 45 U/L (32-104); BUN 34 mg/dL (8-22); CALCIUM 9.1 mg/dL (8.8-10.2); CHLORIDE 94 mmol/L (98-107); COSMO 294; GOT 13 U/L (10-30); GPT 9 U/L (10-36); MAGNESIUM 2.4 mg/dL (1.5-2.7); POTASSIUM 4.1 mmol/L (3.5-5.1); SODIUM 140 mmol/L (136-145); TCO2 38 mmol/L (25-35); TOTAL BILIRUBIN 0.19 mg/dL (0.20-1.00); TOTAL PROTEIN 5.4 g/dL (6.3-8.3)
[2016-06-09] MEDS: LEXAPRO PO SCH (08:00)
[2016-06-09] MEDS: XANAX PO SCH ×2 (08:00→20:20)
[2016-06-09] MEDS: VANCOMYCIN 1,300 MG in NS 250 ML IV SCH (08:01)
[2016-06-09] MEDS: ASPIRIN PO SCH (08:01)
[2016-06-09] MEDS: TUSSIONEX LIQUID PO SCH ×2 (08:01→20:20)
[2016-06-09] MEDS: LIPITOR PO SCH (08:01)
--- NOTE | 2016-06-09 08:41 | Diag Imaging Result Document ---
PROCEDURE NAME: CHEST-PORTABLE - 06/09/2016 SINGLE FRONTAL RADIOGRAPH OF THE CHEST: COMPARISON: 06/07/2016. FINDINGS: The nodular density at right upper lung zone is approximately stable. There is stable linear atelectasis versus scarring at the left lung base. No new consolidations are appreciated. Cardiac silhouette is stable. IMPRESSION: Stable chest.
[2016-06-09] MEDS: ADVAIR 500/50 DISKUS INH SCH ×2 (08:52→20:45)
[2016-06-09] MEDS: SPIRIVA INH SCH (08:52)
--- NOTE | 2016-06-09 09:50 | PROGRESS NOTE ---
DATE: 06/09/2016 SUBJECTIVE: Ms. Apodaca states she is breathing a little better. Still working to move air. She did use the BiPAP some last night and made the comment she thinks she needs to get a BiPAP at home. OBJECTIVE: Vital Signs: Temperature 98 degrees, pulse 77, respirations 20, blood pressure 174/88. HEENT: Pupils are equal and round. Lungs: Clear anterolateral with decreased breath sounds both bases. Cardiovascular: Regular rhythm and rate without murmur or S3. Good urine output at 590. LAB: White count 18,340, hematocrit 31, platelet count 324,000. Sodium 140, potassium 4.1, chloride 94, bicarbonate 38, BUN 34, creatinine 0.8. Liver functions unremarkable. Chest x-ray. Stable chest. Nodular density right upper lung zone, proximally stable. Stable linear atelectasis versus scarring left lung base. No new consolidation. ASSESSMENT AND PLAN: 1. Acute hypoxic and hypercapnic respiratory failure likely multifactorial secondary to chronic obstructive pulmonary disease exacerbation, pneumonia. Continue BiPAP as needed. She does not tolerate it all the time because of anxiety but moving air a little better. Continue steroid, nebulizers, antibiotics and aggressive pulmonary toilet. 2. Community-acquired pneumonia. Broad-spectrum antibiotics. Continue. 3. Sepsis has improved. 4. Chronic obstructive pulmonary disease. 5. Severe throat pain which is much better. Had CT of the neck and recent CT lungs which shows scar versus carcinoma. Continue NPO. Continue antibiotics. 6. Questionable lung cancer. The patient had evidence of carcinoma on CT last month. Chest CT done on the that showed chronic obstructive pulmonary disease and pneumonitis with right lower lobe infiltrate. 7. Continue her Clinimix, vancomycin, Spiriva, fluticasone, Advair 500/50 one puff b.i.d. She is on Zosyn, Xanax 0.5 mg b.i.d., methylprednisone 60 mg IV q.8 hours, Protonix 40 mg q.24 hours, Lipitor 80 mg a day, and on Levaquin as well 750 mg IV q.24 hours. 8. Her microbiology: No growth from blood cultures on the and sputum culture is nonspecific. Continue present treatment.
[2016-06-09] MEDS: ATIVAN IV PRN ×2 (12:57→23:38)
[2016-06-09] MEDS: LEVAQUIN 750 MG/D5W 150 ML IV SCH (14:08)
[2016-06-09] MEDS: MORPHINE IV PRN ×2 (15:46→21:31)
[2016-06-09] MEDS: LOVENOX SUBQ SCH (17:05)
[2016-06-09] MEDS: PROTONIX IV SCH (17:05)
[2016-06-09] MEDS: SODIUM CHLORIDE 0.9% INJ SCH (17:05)
[2016-06-09] MEDS: MBX SOLUTION MT PRN (18:11)
[2016-06-09] MEDS: MYCOSTATIN SUSP PO SCH (20:20)
[2016-06-10] MEDS: ATIVAN IV PRN ×3 (03:25→22:58)
[2016-06-10] MEDS: SOLU-MEDROL IV SCH ×3 (03:26→20:22)
[2016-06-10] MEDS: DUONEB (A & A) INH SCH ×4 (04:15→19:26)
[2016-06-10] MEDS: ZOSYN 3.375 GM/NS 50 ML IV SCH ×3 (05:29→17:53)
[2016-06-10] MEDS: ADVAIR 500/50 DISKUS INH SCH ×2 (07:18→19:26)
[2016-06-10] MEDS: DUONEB (A & A) INH PRN (07:18)
[2016-06-10] MEDS: SPIRIVA INH SCH (07:19)
[2016-06-10] MEDS: LEXAPRO PO SCH (09:13)
[2016-06-10] MEDS: LIPITOR PO SCH (09:13)
[2016-06-10] MEDS: ASPIRIN PO SCH (09:13)
[2016-06-10] MEDS: TUSSIONEX LIQUID PO SCH ×2 (09:13→20:22)
[2016-06-10] MEDS: XANAX PO SCH ×2 (09:13→20:22)
[2016-06-10] MEDS: MYCOSTATIN SUSP PO SCH ×4 (09:14→20:22)
[2016-06-10] MEDS: VANCOMYCIN 1,300 MG in NS 250 ML IV SCH (09:15)
[2016-06-10] MEDS ORDERED: LASIX IV ONE (11:01)
[2016-06-10] MEDS: NS 1,000 ML IV SCH (12:57)
--- NOTE | 2016-06-10 14:00 | PROGRESS NOTE ---
DATE: 06/10/2016 SUBJECTIVE: Ms. Apodaca is breathing little better. She was resting comfortably and sleeping. Easy to arouse. OBJECTIVE: Vital signs: Afebrile, temp 97.3 degrees, pulse 80, respirations 20, blood pressure 140-170 over 81-100. Lungs: Clear in all lung shaw. Cardiovascular: Regular rhythm and rate without murmur or S3. Abdomen: Soft. Skin: Warm and dry. Intake and output: Good urine output by report. REVIEW OF ORDERS: I reviewed orders. On vancomycin, tiotropium bromide 1 puff daily, fluticasone salmeterol 1 puff b.i.d., Zosyn IV q.6, Xanax 0.25 mg b.i.d., methylprednisone 60 mg IV q.6, Protonix 40 mg IV daily, Lipitor 80 mg a day, Levaquin 750 mg daily. Note that microbiology shows no growth. ASSESSMENT AND PLAN: 1. Her chest x-ray from yesterday, stable chest. There is a nodular density in the right upper lung proximally, stable. Stable linear atelectasis. I am going to continue present antibiotics. We have vancomycin, Zosyn, and Levaquin going. There is a question on this right lung opacity whether it is a mass or it is an infection. Dr. Escobedo is following. Continue present breathing treatments. 2. Sepsis which is improved. 3. Chronic obstructive pulmonary disease. 4. Severe throat pain. I am going to treat her for a little bit of irritation. She had a little bit hyper erythema and this may be fungal in nature. Will give her nystatin swish and swallow. 5. Nutrition. She is on peripheral nutrition. Encourage p.o. intake. See if that will improve.
[2016-06-10] MEDS: LEVAQUIN 750 MG/D5W 150 ML IV SCH (14:51)
[2016-06-10] MEDS: LOVENOX SUBQ SCH (17:53)
[2016-06-10] MEDS: SODIUM CHLORIDE 0.9% INJ SCH (17:53)
[2016-06-10] MEDS: PROTONIX IV SCH (17:53)
[2016-06-10] MEDS: MORPHINE IV PRN (20:30)
[2016-06-11] MEDS: ZOSYN 3.375 GM/NS 50 ML IV SCH ×4 (00:04→17:29)
[2016-06-11] MEDS: NS 1,000 ML IV SCH (03:13)
[2016-06-11] MEDS: SOLU-MEDROL IV SCH ×3 (03:13→19:44)
[2016-06-11] MEDS: DUONEB (A & A) INH SCH ×4 (03:51→19:24)
[2016-06-11 04:42] LABS: ALLEN TEST YES; BE 14.5 mmoll (-3.0-3.0); BLOOD TYPE ARTERIAL; DRAW SITE R RADIAL; METHB 1.4 % (0.0-1.5); O2(CT) 21.1 mL/dL (15.0-23.0); PO2(98.6) 100 mmHg (60-100); SAMPLE BLOOD; SAO2 99.5 % (95.0-100.0); THB 15.6 g/dL (11.5-17.4); pH(98.6) 7.39 (7.35-7.45)
[2016-06-11 04:44] LABS: MODALITY CANNULA; PCO2(98.6) 72 mmHg (35-45)
[2016-06-11] MEDS: ATIVAN IV PRN ×2 (05:24→19:35)
[2016-06-11 06:17] LABS: AGAP 10; ALBUMIN 2.8 g/dL (3.5-5.0); ALKALINE PHOSPHATASE 51 U/L (32-104); BUN 26 mg/dL (8-22); CALCIUM 8.3 mg/dL (8.8-10.2); CHLORIDE 99 mmol/L (98-107); COSMO 299; GOT 13 U/L (10-30); GPT 9 U/L (10-36); MAGNESIUM 2.1 mg/dL (1.5-2.7); POTASSIUM 3.7 mmol/L (3.5-5.1); SODIUM 145 mmol/L (136-145); TCO2 36 mmol/L (25-35); TOTAL BILIRUBIN 0.22 mg/dL (0.20-1.00); TOTAL PROTEIN 5.2 g/dL (6.3-8.3)
--- NOTE | 2016-06-11 07:34 | Diag Imaging Result Document ---
PROCEDURE NAME: CHEST-PORTABLE - 06/11/2016 AP PORTABLE CHEST AT 0505 HOURS; FINDINGS: There is atelectasis present in the left costophrenic angle. There is a nodule in the right Upper lobe. These findings have not changed since 06/09/2016 or 05/05/2015. IMPRESSION: Stable chest.
[2016-06-11] MEDS: ADVAIR 500/50 DISKUS INH SCH ×2 (08:41→19:24)
[2016-06-11] MEDS: SPIRIVA INH SCH (08:41)
[2016-06-11] MEDS: XANAX PO SCH ×2 (08:49→20:53)
[2016-06-11] MEDS: ASPIRIN PO SCH (08:49)
[2016-06-11] MEDS: LIPITOR PO SCH (08:49)
[2016-06-11] MEDS: LEXAPRO PO SCH (08:50)
[2016-06-11] MEDS: TUSSIONEX LIQUID PO SCH ×2 (08:52→20:53)
[2016-06-11] MEDS: MBX SOLUTION MT PRN ×2 (08:52→20:52)
[2016-06-11] MEDS: MYCOSTATIN SUSP PO SCH ×4 (08:55→20:53)
[2016-06-11] MEDS: LEVAQUIN 750 MG/D5W 150 ML IV SCH (15:08)
[2016-06-11] MEDS: PROTONIX IV SCH (17:29)
[2016-06-11] MEDS: LOVENOX SUBQ SCH (17:30)
[2016-06-11] MEDS: MORPHINE IV PRN (17:30)
[2016-06-12] MEDS: ZOSYN 3.375 GM/NS 50 ML IV SCH ×5 (00:08→23:46)
[2016-06-12] MEDS: MORPHINE IV PRN ×3 (00:08→23:47)
[2016-06-12] MEDS: DUONEB (A & A) INH SCH ×4 (03:00→19:34)
[2016-06-12] MEDS: SOLU-MEDROL IV SCH ×3 (04:30→20:04)
[2016-06-12] MEDS: ADVAIR 500/50 DISKUS INH SCH ×2 (07:11→19:33)
[2016-06-12] MEDS: DUONEB (A & A) INH PRN ×2 (07:11→14:51)
[2016-06-12] MEDS: SPIRIVA INH SCH (07:11)
[2016-06-12] MEDS: LEXAPRO PO SCH (08:32)
[2016-06-12] MEDS: ASPIRIN PO SCH (08:32)
[2016-06-12] MEDS: LIPITOR PO SCH (08:33)
[2016-06-12] MEDS: MYCOSTATIN SUSP PO SCH ×4 (08:34→20:03)
[2016-06-12] MEDS: XANAX PO SCH ×2 (08:35→20:05)
[2016-06-12] MEDS: TUSSIONEX LIQUID PO SCH ×2 (08:36→20:04)
[2016-06-12 10:45] LABS: ALLEN TEST YES; BE 14.6 mmoll (-3.0-3.0); BLOOD TYPE ARTERIAL; DRAW SITE R RADIAL; METHB 1.6 % (0.0-1.5); O2(CT) 14.5 mL/dL (15.0-23.0); PO2(98.6) 86 mmHg (60-100); SAMPLE BLOOD; SAO2 98.9 % (95.0-100.0); THB 10.8 g/dL (11.5-17.4); pH(98.6) 7.42 (7.35-7.45)
[2016-06-12 10:47] LABS: MODALITY CANNULA; PCO2(98.6) 64 mmHg (35-45)
[2016-06-12] MEDS: LEVAQUIN 750 MG/D5W 150 ML IV SCH (15:43)
--- NOTE | 2016-06-12 16:43 | PROGRESS NOTE ---
DATE: 06/12/2016 SUBJECTIVE: The patient is resting comfortably in bed. She does state that she still feels short of breath, but otherwise has no other complaints. OBJECTIVE: Vital Signs: Temperature 98.1, blood pressure 163/85, heart rate 110. Respirations 22, O2 saturations 99% on 4 L nasal cannula. General: This is a chronically ill-appearing elderly female, lying in bed, in no acute distress. Head: Normocephalic, atraumatic. Heart: S1, S2. Normal. Regular rate and rhythm. Lungs: Diminished air entry bilaterally. No crackles. No wheezing. No rales. Abdomen: Positive bowel sounds. Soft, nontender, nondistended. Extremities: No edema. No cyanosis. No calf tenderness. Neurologic: The patient is alert and oriented x3. LABS: ABG: PH of 7.42, pCO2 of 64, pO2 of 86, bicarb 36. O2 saturation is 98% . ASSESSMENT AND PLAN: 1. Acute on chronic hypercapnic respiratory failure secondary to chronic obstructive pulmonary disease. Continue on IV steroid therapy, bronchodilator therapy, and IV antibiotics. 2. Acute chronic obstructive pulmonary disease exacerbation. Continue on IV steroids, IV antibiotics and bronchodilator therapy. 3. Pneumonia. Continue on IV antibiotic therapy. 4. Possible right upper lobe nodule versus mass. Aware. The patient will most likely require a repeat CT once she has recovered from the pneumonia. Pulmonary is following. 5. Protein calorie malnutrition. Boost with each meal. 6. Deep vein thrombosis prophylaxis. Continue on Lovenox. [facility]
[2016-06-12] MEDS: LOVENOX SUBQ SCH (17:23)
[2016-06-12] MEDS: PROTONIX IV SCH (17:23)
[2016-06-12] MEDS: SODIUM CHLORIDE 0.9% INJ SCH (17:23)
[2016-06-12] MEDS: ATIVAN IV PRN (19:40)
[2016-06-12] MEDS: MBX SOLUTION MT PRN (20:04)
[2016-06-13] MEDS: DUONEB (A & A) INH SCH ×4 (02:28→20:10)
[2016-06-13] MEDS: SOLU-MEDROL IV SCH ×3 (04:30→20:49)
[2016-06-13 04:34] LABS: ALLEN TEST YES; BE 16.5 mmoll (-3.0-3.0); BLOOD TYPE ARTERIAL; DRAW SITE R RADIAL; METHB 1.6 % (0.0-1.5); O2(CT) 15.7 mL/dL (15.0-23.0); PO2(98.6) 104 mmHg (60-100); SAMPLE BLOOD; SAO2 99.9 % (95.0-100.0); THB 11.5 g/dL (11.5-17.4); pH(98.6) 7.44 (7.35-7.45)
[2016-06-13 04:35] LABS: MODALITY CANNULA; PCO2(98.6) 64 mmHg (35-45)
[2016-06-13 04:50] LABS: HEMATOCRIT 32.1 % (37.0-47.0); HEMOGLOBIN 9.8 g/dL (12.0-16.0); MCH 25.9 PG (27-31); MCHC 30.5 g/dL (33-37); MCV 84.9 FL (81-99); MPV 10.2 FL (7.4-10.4); RBC 3.78 XMIL (4.2-5.4)
[2016-06-13 05:29] LABS: AGAP 8; BUN 25 mg/dL (8-22); CALCIUM 8.4 mg/dL (8.8-10.2); CHLORIDE 100 mmol/L (98-107); COSMO 294; POTASSIUM 3.7 mmol/L (3.5-5.1); SODIUM 142 mmol/L (136-145); TCO2 34 mmol/L (25-35)
[2016-06-13] MEDS: ZOSYN 3.375 GM/NS 50 ML IV SCH ×3 (05:42→20:48)
--- NOTE | 2016-06-13 07:47 | Diag Imaging Result Document ---
PROCEDURE NAME: CHEST-PORTABLE - 06/13/2016 AP PORTABLE CHEST AT 0510 HOURS: FINDINGS: There is atelectasis over the left base which appears slightly worse than on 06/11/2016. Otherwise, there has been no significant change. IMPRESSION: Slightly worsening in left basilar atelectasis.
[2016-06-13] MEDS: ADVAIR 500/50 DISKUS INH SCH ×2 (07:51→20:10)
[2016-06-13] MEDS: SPIRIVA INH SCH (07:51)
[2016-06-13] MEDS: LEXAPRO PO SCH (08:48)
[2016-06-13] MEDS: ASPIRIN PO SCH (08:48)
[2016-06-13] MEDS: XANAX PO SCH ×2 (08:48→20:49)
[2016-06-13] MEDS: TUSSIONEX LIQUID PO SCH ×2 (08:49→20:49)
[2016-06-13] MEDS: LIPITOR PO SCH (08:49)
[2016-06-13] MEDS: MYCOSTATIN SUSP PO SCH ×4 (08:49→21:04)
[2016-06-13] MEDS: LEVAQUIN 750 MG/D5W 150 ML IV SCH (15:51)
--- NOTE | 2016-06-13 19:44 | PROGRESS NOTE ---
DATE: 06/13/2016 SUBJECTIVE: The patient is resting comfortably in bed. She has no complaints at this time. OBJECTIVE: Vital Signs: Temperature is 98.1 degrees, blood pressure 143/60, heart rate 113, respirations 24, O2 saturations 96% on 4 L nasal cannula. General: This is an elderly female, lying in bed, in no acute distress. Head: Normocephalic, atraumatic. Heart: S1, S2. Normal. Regular rate and rhythm. Lungs: Clear to auscultation bilaterally. Poor air entry bilaterally. Abdomen: Positive bowel sounds. Soft, nontender, nondistended. Extremities: No edema. No cyanosis. No calf tenderness. Neurologic: The patient is alert and awake. LABORATORY: White blood cell count 22, hemoglobin 9.8, hematocrit 32, platelets 302,000. ABG: PH of 7.4, pCO2 54, PO2 104, bicarb 37, sodium 142, potassium 3.7, chloride 100, CO2 34, BUN 25, creatinine 0.9, glucose 208. ASSESSMENT AND PLAN: 1. Acute on chronic hypercapnic respiratory failure. The patient remains about the same. We will continue on steroid therapy, bronchodilator therapy and IV antibiotics plus supplemental oxygen. 2. Acute chronic obstructive pulmonary disease exacerbation. Continue on the current medications. 3. Pneumonia. Continue on IV antibiotic therapy. 4. Right upper lobe mass versus nodule. Aware. Pulmonary is following. 5. Protein calorie malnutrition. Continue on boost with each meal. 6. Situational depression. Continue on Lexapro. 7. Dyslipidemia. Continue on Lipitor. 8. Deep vein thrombosis prophylaxis. Continue on Lovenox. 9. We will consult Physical Therapy. 10. We will also consult [facility] for rehab placement.
[2016-06-13] MEDS: MORPHINE IV PRN (20:49)
[2016-06-13] MEDS: SODIUM CHLORIDE 0.9% INJ SCH (20:49)
[2016-06-13] MEDS: PROTONIX IV SCH (20:49)
[2016-06-13] MEDS: LOVENOX SUBQ SCH (20:50)
[2016-06-14] MEDS: ZOSYN 3.375 GM/NS 50 ML IV SCH ×4 (02:16→20:49)
[2016-06-14] MEDS: DUONEB (A & A) INH SCH ×4 (03:00→21:25)
[2016-06-14] MEDS: SOLU-MEDROL IV SCH ×3 (05:09→20:49)
[2016-06-14 06:53] LABS: HEMATOCRIT 29.8 % (37.0-47.0); HEMOGLOBIN 9.2 g/dL (12.0-16.0); MCH 26.1 PG (27-31); MCHC 30.9 g/dL (33-37); MCV 84.4 FL (81-99); MPV 10.2 FL (7.4-10.4); RBC 3.53 XMIL (4.2-5.4)
[2016-06-14 07:28] LABS: AGAP 8; BUN 25 mg/dL (8-22); CALCIUM 8.5 mg/dL (8.8-10.2); CHLORIDE 103 mmol/L (98-107); COSMO 298; POTASSIUM 3.5 mmol/L (3.5-5.1); SODIUM 145 mmol/L (136-145); TCO2 34 mmol/L (25-35)
[2016-06-14] MEDS: SPIRIVA INH SCH (08:05)
[2016-06-14] MEDS: ADVAIR 500/50 DISKUS INH SCH ×2 (08:06→21:25)
[2016-06-14] MEDS: TUSSIONEX LIQUID PO SCH ×2 (09:44→20:58)
[2016-06-14] MEDS: LIPITOR PO SCH (09:44)
[2016-06-14] MEDS: XANAX PO SCH ×2 (09:44→21:01)
[2016-06-14] MEDS: ASPIRIN PO SCH (09:44)
[2016-06-14] MEDS: MORPHINE IV PRN ×2 (09:45→14:14)
[2016-06-14] MEDS: LEXAPRO PO SCH (10:08)
[2016-06-14] MEDS: MYCOSTATIN SUSP PO SCH ×4 (13:43→20:48)
[2016-06-14] MEDS: DUONEB (A & A) INH PRN (14:36)
[2016-06-14] MEDS: LEVAQUIN 750 MG/D5W 150 ML IV SCH (15:02)
--- NOTE | 2016-06-14 15:50 | PALLIATIVE CARE CONSULTATION ---
DATE: 06/14/2016 REQUESTING PHYSICIAN: Dr. Cavazos. REASON FOR CONSULTATION: End-stage COPD. 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 Congestive heart failure, hypertension and hyperlipidemia. She was most recently admitted on 06/01/2016, after presenting to the ED with progressively worsening shortness of breath. It was reported that she was treated in the outpatient setting for pneumonia approximately 1 month before this admission, but did not have any relief for her shortness of breath. While in the ED, she also complained of severe throat pain causing her to not be able to eat or drink. She was in significant respiratory distress and required BiPAP therapy. At that time, she was admitted to the ICU. Her son and fynqyflk-by-xme are at the bedside. Ms. Apodaca has lived with her son and [id number] for the last 2 years. They report that she has had a significant decline in her overall health over the last 6 months. They state that now she is unable to walk 5-10 feet without becoming severely dyspneic. The zycyirxb-ws-pls explains that she was able to cook and perform light household duties approximately 6 months ago, but now is unable to perform any of those. She does require help with bathing and dressing. Currently, Ms. Apodaca is sitting in the hospital bed. She complains of dyspnea. She also complains of pain to bilateral arms that she states is due to repeated lab sticks. She denies nausea. She states her appetite is good. She also denies anxiety and depression. The palliative care team has been consulted to assist with symptom management of her end-stage COPD. PAST MEDICAL HISTORY: 1. End-stage COPD. 2. Congestive heart failure. 3. Hypertension. 4. Hyperlipidemia. PAST SURGICAL HISTORY: 1. Tubal ligation. 2. Breast augmentation. SOCIAL HISTORY: She is a past smoker. It is reported that she quit 5 years ago. Alcohol and drug use are denied. She is . Prior to this admission, she lived locally with her son and whjpwuwj-qu-esf. FAMILY HISTORY: Positive for lung cancer. REVIEW OF SYSTEMS: A 12-point review of systems has been conducted and otherwise negative except those mentioned in the HPI. PHYSICAL EXAM: General: This is a chronically ill-appearing, 71-year-old, female, who does appear to be in mild respiratory distress. HEENT: Atraumatic, normocephalic. Neck: Trachea is midline. Cardiovascular: Normal S1, S2. Pulmonary: Lung sounds are diminished. Respirations are labored especially with conversation. Abdomen: Soft. Bowel sounds are active. Extremities: Pulses are palpable. There is no edema noted. Skin: Warm and dry. Neuro: She is awake and alert. IMPRESSION: This is a 71-year-old, female with a past medical history as listed above. I met with the patient and her ogxiwwvo-ss-trq and son to discuss her overall condition. The son and uoqibxfk-tm-vvf state that they could no longer take care of her and are interested in long- term care placement. We also discussed hospice services as Ms. Apodaca is appropriate for hospice considering her end-stage COPD. At this point, the son states that they are working with neonatal social worker to make arrangements for either rehab, then long-term care placement or long-term care placement at discharge from the hospital. In regards to her complaint of dyspnea, we will increase the frequency of her morphine to help with her air hunger. We also discussed advanced directive and power of title attorney. She does not have either document. Is unsure of her wishes. Copies of advanced directive and mupeu-hz-mzbbtkfz was given to the patient and her family. It appears that her palliative performance scale is 40% at this time. The palliative care team will continue to follow daily until discharge. Thank you for this consultation. Dictated by KEO Lima for Declan Escobedo MD
[2016-06-14] MEDS: ATIVAN IV PRN (16:01)
--- NOTE | 2016-06-14 16:24 | PROGRESS NOTE ---
DATE: 06/14/2016 SUBJECTIVE: This patient is in mild distress. At this moment this patient is on BiPAP machine. She is complaining of shortness of breath. OBJECTIVE: Vital Signs: Temperature 97.6 degrees, pulse 101, respiratory rate 22, blood pressure 157/88. O2 saturation 97% on a BiPAP machine. HEENT: Head normocephalic. No trauma. PERRLA. Neck: Supple. No JVD. No masses. Chest: Mild expiratory wheezing, scattered, poor air entry bilaterally. Prolonged expiratory phase. Abdomen: Soft, nontender, nondistended. No hepatosplenomegaly. Cardiovascular: RRR. No murmurs. No gallops. Tachycardic. Extremities: No edema. No clubbing. No cyanosis. Neurological: The patient is alert and oriented x3. No focal neurological deficits. LABORATORY: WBC 19.5, hemoglobin 9.2, hematocrit 29.8, platelets 275,000. Sodium 145, potassium 3.5, chloride 103, bicarbonate 34. BUN 25, creatinine 0.8, glucose 190, calcium 8.5. ASSESSMENT AND PLAN: 1. Acute on chronic hypercapnic respiratory failure. This patient remains about the same. We will continue with steroid therapy, bronchodilator and IV antibiotics. I will continue with oxygen as well. 2. Acute on chronic pulmonary disease exacerbation. Continue with current medications. At this at this moment this patient is on BiPAP machine. 3. Pneumonia. Continue with IV antibiotics. 4. Right upper lobe mass versus nodule. Aware. Pulmonary is following. 5. Protein calorie malnutrition. Continue with on Boost with each meal. 6. Situational depression. Continue with Lexapro. 7. Dyslipidemia. Continue on Lipitor. 8. DVT prophylaxis. Continue Lovenox.
[2016-06-14] MEDS: LOVENOX SUBQ SCH (20:01)
[2016-06-14] MEDS: PROTONIX IV SCH (20:48)
[2016-06-14] MEDS: SODIUM CHLORIDE 0.9% INJ SCH (20:49)
[2016-06-15] MEDS: ZOSYN 3.375 GM/NS 50 ML IV SCH ×4 (02:23→23:43)
[2016-06-15] MEDS: SOLU-MEDROL IV SCH ×3 (03:41→23:41)
[2016-06-15] MEDS: DUONEB (A & A) INH SCH ×4 (03:47→20:03)
[2016-06-15 07:28] LABS: HEMATOCRIT 30.4 % (37.0-47.0); HEMOGLOBIN 9.4 g/dL (12.0-16.0); MCH 26.1 PG (27-31); MCHC 30.9 g/dL (33-37); MCV 84.4 FL (81-99); MPV 10.1 FL (7.4-10.4); RBC 3.6 XMIL (4.2-5.4)
[2016-06-15 07:42] LABS: AGAP 8; BUN 24 mg/dL (8-22); CALCIUM 8.6 mg/dL (8.8-10.2); CHLORIDE 103 mmol/L (98-107); COSMO 299; POTASSIUM 3.7 mmol/L (3.5-5.1); SODIUM 145 mmol/L (136-145); TCO2 34 mmol/L (25-35)
[2016-06-15] MEDS: ADVAIR 500/50 DISKUS INH SCH ×2 (08:17→20:03)
[2016-06-15] MEDS: SPIRIVA INH SCH (08:17)
[2016-06-15] MEDS: XANAX PO SCH ×2 (08:56→23:42)
[2016-06-15] MEDS: LIPITOR PO SCH (08:56)
[2016-06-15] MEDS: ASPIRIN PO SCH (08:56)
[2016-06-15] MEDS: LEXAPRO PO SCH (08:56)
[2016-06-15] MEDS: MYCOSTATIN SUSP PO SCH ×4 (08:58→23:42)
[2016-06-15] MEDS: TUSSIONEX LIQUID PO SCH ×2 (08:58→23:42)
[2016-06-15] MEDS ORDERED: CALMOSEPTINE OINTMENT TOP PRN (11:09)
[2016-06-15] MEDS: MORPHINE IV PRN (11:37)
[2016-06-15] MEDS: DUONEB (A & A) INH PRN (11:41)
[2016-06-15] MEDS: LEVAQUIN 750 MG/D5W 150 ML IV SCH (15:09)
--- NOTE | 2016-06-15 16:47 | PALLIATIVE CARE PROGRESS NOTE ---
DATE: 06/15/2016 SUBJECTIVE: Ms. Apodaca appears to be in mild respiratory distress. She is complaining of shortness of breath. OBJECTIVE: General: This is a 71-year-old, female, who appears in mild respiratory distress. HEENT: Atraumatic, normocephalic. Neck: Trachea is midline. Cardiovascular: Normal S1, S2. Pulmonary: Lung sounds are diminished with scattered wheeze. Respirations are labored. Abdomen: Soft. Bowel sounds are active. Extremities: Pulses are palpable. There is no edema. Skin: Warm and dry. Neuro: She is awake and alert. ASSESSMENT AND PLAN: Ms. Apodaca states that she does not have any questions regarding yesterday's consultation and information regarding hospice. She does complain of shortness of breath. She is utilizing morphine and states that it is effective. It is currently time for another dose. The palliative care team will continue to follow daily until discharge. Dictated by KEO Lima for Declan Escobedo MD
--- NOTE | 2016-06-15 18:18 | PROGRESS NOTE ---
DATE: 06/15/2016 SUBJECTIVE: This patient is in mild distress. At the moment this patient is on oxygen but she is feeling good. Palliative Care team is on board because of her end-stage COPD. OBJECTIVE: Vital Signs: Temperature 98.2 degrees, pulse 110, respiratory rate 16, blood pressure 134/69, O2 saturation 97% on 3 L of nasal cannula. HEENT: Head normocephalic. No trauma. PERRLA. Neck: Supple. No JVD. No masses. Chest: Mild expiatory wheezing but scattered. Poor air entry bilaterally. Prolonged expiratory phase. Abdomen: Soft, nontender, nondistended. No hepatosplenomegaly. Cardiovascular: RRR. No murmurs. No gallops. Tachycardic. Extremities: No edema. No clubbing. No cyanosis. Neurological Examination: The patient is alert and oriented x3. No focal neurological deficits. She is in mild distress. LABORATORY: WBC 16.6, hemoglobin 9.4, hematocrit 30.4, platelets 279,000, sodium 145, potassium 3.7, chloride 103, bicarbonate 34, BUN 24, creatinine 0.8, glucose 218, calcium 8.6. ASSESSMENT AND PLAN: 1. Acute on chronic hypercapnic respiratory failure. This patient remains about the same. We will continue with steroid bronchodilator and IV antibiotics. We will continue with oxygen as well. The Palliative Care team is on board and they are discussing the possibility of hospice. 2. Acute on chronic pulmonary disease exacerbation. Continue with current medications at this moment. This patient is on nasal cannula, but she is still short of breath. 3. Pneumonia. Continue with IV antibiotics. 4. Right upper lung mass versus nodule. Aware. Pulmonary is following. 5. Protein calorie malnutrition. Continue with Boost with each meal. 6. Situational depression. Continue with Lexapro. 7. Dyslipidemia. Continue on Lipitor.
[2016-06-15] MEDS: ATIVAN IV PRN (21:33)
[2016-06-15] MEDS: LOVENOX SUBQ SCH (23:43)
[2016-06-15] MEDS: PROTONIX IV SCH (23:43)
[2016-06-16] MEDS: ZOSYN 3.375 GM/NS 50 ML IV SCH ×4 (03:00→23:29)
[2016-06-16] MEDS: SOLU-MEDROL IV SCH ×3 (03:00→23:30)
[2016-06-16] MEDS: DUONEB (A & A) INH SCH ×4 (03:46→23:49)
[2016-06-16] MEDS: MORPHINE IV PRN ×2 (08:14→18:29)
[2016-06-16] MEDS: LEXAPRO PO SCH (08:16)
[2016-06-16] MEDS: ASPIRIN PO SCH (08:16)
[2016-06-16] MEDS: LIPITOR PO SCH (08:16)
[2016-06-16] MEDS: MYCOSTATIN SUSP PO SCH ×4 (08:17→23:34)
[2016-06-16] MEDS: TUSSIONEX LIQUID PO SCH ×2 (08:30→23:28)
[2016-06-16] MEDS: XANAX PO SCH ×2 (08:30→23:30)
[2016-06-16] MEDS: ADVAIR 500/50 DISKUS INH SCH ×2 (08:46→23:51)
[2016-06-16] MEDS: SPIRIVA INH SCH (08:46)
[2016-06-16 09:16] LABS: BASO% 0.1 % (0.0-0.8); HEMATOCRIT 29.8 % (37.0-47.0); HEMOGLOBIN 9.5 g/dL (12.0-16.0); IMM GRAN% 1.2 % (0.0-0.5); LYMPH# 0.44 X1000 (1.2-3.4); LYMPH% 2.5 % (20.5-51.1); MANUAL DIFF NEEDED? YES; MCH 26.4 PG (27-31); MCHC 31.9 g/dL (33-37); MCV 82.8 FL (81-99); MONO% 1.7 % (1.7-9.3); MPV 10.3 FL (7.4-10.4); NEUT% 94.5 % (42.2-75.2); PLT 271 X1000 (130-400)
[2016-06-16 09:38] LABS: AGAP 9; BUN 25 mg/dL (8-22); CALCIUM 8.1 mg/dL (8.8-10.2); CHLORIDE 100 mmol/L (98-107); COSMO 295; POTASSIUM 3.6 mmol/L (3.5-5.1); SODIUM 141 mmol/L (136-145); TCO2 32 mmol/L (25-35)
[2016-06-16 10:30] LABS: BANDS 4 % (0-1); LYMPHS 6 % (21-51); MONO 4 % (1-9)
[2016-06-16] MEDS: ATIVAN IV PRN (12:46)
--- NOTE | 2016-06-16 13:49 | PROGRESS NOTE ---
DATE: 06/16/2016 SUBJECTIVE: This patient looks better today. She is still complaining of shortness of breath. She is having mild work of breathing. She is on nasal cannula. The palliative care team is on board because of her end-stage COPD, they are talking about the possibility of hospice on this patient. OBJECTIVE: Vital Signs: Temperature 97.9 degrees, pulse 96, respiratory rate 20, blood pressure 144/69, O2 saturation 100% on 4 L of nasal cannula. HEENT: Head normocephalic. No trauma. PERRLA. Neck: Supple. No JVD. No masses. Chest: Poor air entry bilaterally. Prolonged expiratory phase. Abdomen: Soft, nontender, nondistended. No hepatosplenomegaly. Cardiovascular: RRR. No murmurs. No gallops. No rubs. Extremities: No edema. No clubbing. No cyanosis. Neurological: The patient is alert and oriented x3. No focal neurological deficits. LABORATORY: WBC 17.3, hemoglobin 9.5, hematocrit 29.8, platelet 271,000. Sodium 141, potassium 3.6, chloride 100, bicarbonate 32, BUN 25, creatinine 0.8, glucose 264. ASSESSMENT AND PLAN: 1. Acute on chronic hypercapnic respiratory failure. This patient feels a little bit better. We will continue with the same treatment, steroids, bronchodilators and IV antibiotics. We will continue with oxygen as well. Palliative care team is on board and they are discussing the possibility of hospice. 2. Acute on chronic pulmonary disease exacerbation, this is likely end-stage, continue with current medications. This patient is on nasal cannula today and she is still short of breath. 3. Pneumonia. Continue with IV antibiotics. 4. Hyperglycemia. I will start this patient on insulin and I will ask for hemoglobin A1c. 5. Right upper lung mass versus nodule, aware. Pulmonary is following. 6. Protein calorie malnutrition. Continue with Boost with each meal. 7. Situational depression. Continue with Lexapro. 8. Dyslipidemia. Continue on Lipitor.
[2016-06-16] MEDS: LEVAQUIN 750 MG/D5W 150 ML IV SCH (18:34)
[2016-06-16] MEDS: LANTUS SUBQ SCH (23:29)
[2016-06-16] MEDS: HUMULIN R SUBQ SCH (23:30)
[2016-06-16] MEDS: PROTONIX IV SCH (23:30)
[2016-06-16] MEDS: LOVENOX SUBQ SCH (23:31)
[2016-06-17] MEDS: DUONEB (A & A) INH SCH ×5 (02:57→19:21)
[2016-06-17] MEDS: SOLU-MEDROL IV SCH ×3 (03:23→20:12)
[2016-06-17] MEDS: ZOSYN 3.375 GM/NS 50 ML IV SCH ×4 (03:23→20:11)
[2016-06-17] MEDS: HUMULIN R SUBQ SCH ×4 (06:10→22:04)
[2016-06-17 07:12] LABS: BASO% 0.1 % (0.0-0.8); HEMATOCRIT 28.6 % (37.0-47.0); HEMOGLOBIN 8.9 g/dL (12.0-16.0); IMM GRAN# 0.08 X1000 (0.0-0.04); IMM GRAN% 0.5 % (0.0-0.5); LYMPH# 0.34 X1000 (1.2-3.4); MANUAL DIFF NEEDED? YES; MCH 25.9 PG (27-31); MCHC 31.1 g/dL (33-37); MCV 83.1 FL (81-99); MONO# 0.21 X1000 (0.11-0.59); MONO% 1.3 % (1.7-9.3); MPV 9.6 FL (7.4-10.4); NEUT% 96.1 % (42.2-75.2); PLT 253 X1000 (130-400); RBC 3.44 XMIL (4.2-5.4)
[2016-06-17 07:21] LABS: HEMOGLOBIN A1C 7.3 % (4.8-6.0)
[2016-06-17 07:22] LABS: AGAP 7; BUN 25 mg/dL (8-22); CALCIUM 8.2 mg/dL (8.8-10.2); CHLORIDE 107 mmol/L (98-107); COSMO 300; POTASSIUM 4.1 mmol/L (3.5-5.1); SODIUM 147 mmol/L (136-145); TCO2 33 mmol/L (25-35)
[2016-06-17] MEDS: ADVAIR 500/50 DISKUS INH SCH ×2 (07:27→19:22)
[2016-06-17] MEDS: SPIRIVA INH SCH (07:28)
[2016-06-17 07:35] LABS: BANDS 6 % (0-1); LYMPHS 2 % (21-51); MONO 2 % (1-9)
[2016-06-17] MEDS: MORPHINE IV PRN ×2 (10:00→15:49)
[2016-06-17] MEDS: LIPITOR PO SCH (10:02)
[2016-06-17] MEDS: XANAX PO SCH ×2 (10:02→20:12)
[2016-06-17] MEDS: LEXAPRO PO SCH (10:03)
[2016-06-17] MEDS: MYCOSTATIN SUSP PO SCH ×4 (10:03→21:20)
[2016-06-17] MEDS: ASPIRIN PO SCH (10:03)
[2016-06-17] MEDS: TUSSIONEX LIQUID PO SCH ×2 (10:04→20:12)
[2016-06-17] MEDS: LEVAQUIN 750 MG/D5W 150 ML IV SCH (15:45)
--- NOTE | 2016-06-17 16:16 | PROGRESS NOTE ---
DATE: 06/17/2016 SUBJECTIVE: This patient is about the same compared with yesterday. She is still complaining of shortness of breath. She is having mild work of breathing. She is on nasal cannula. The palliative care team is on board because of her end-stage COPD, they are talking about the possibility of rehab and/or alf care facility and/or palliative care plus hospice. OBJECTIVE: Vital Signs: Temperature 97.6 degrees, pulse 97, respiratory rate 24, blood pressure 144/64, oxygen saturation 97 on 3 L of nasal cannula. HEENT: Head normocephalic. No trauma. PERRLA. Neck: Supple. No JVD. No masses. Chest: Poor air entry bilaterally. Prolonged expiatory phase. Scattered wheezing. Abdomen: Soft, nontender, nondistended. No hepatosplenomegaly. Cardiovascular: RRR. No murmurs. No gallops or rubs. Extremities: No edema. No clubbing. No cyanosis. Neurological: The patient is alert and oriented x3. No focal neurological deficits. LABORATORY: WBC 16.6, hemoglobin 8.9, hematocrit 28.6, platelets 253,000. Sodium 147, potassium 4.1, chloride 107, bicarbonate 33, BUN 25, creatinine 0.7, glucose 164, hemoglobin A1c 7.3, calcium 8.2. ASSESSMENT AND PLAN: 1. Acute on chronic hypercapnic respiratory failure. This patient feels a little bit better. She still continues having mild shortness of breath. Will continue with steroids, bronchodilators and IV antibiotics. We will continue also with oxygen. Palliative care team is on board and they are discussing the possibility of hospice. 2. Acute on chronic pulmonary disease exacerbation. This is likely end-stage chronic obstructive pulmonary disease. Continue with current medications. This patient is on nasal cannula today. She is still complaining of mild shortness of breath. 3. Pneumonia. Continue with IV antibiotics. 4. Diabetes. The hemoglobin A1c is 7.3. I will continue with her insulin. 5. Right upper lung mass versus nodule, aware. Pulmonary Department is following this patient. 6. Protein calorie malnutrition. Continue with Boost with each meal. 7. Situational depression. Continue with Lexapro. 8. Dyslipidemia. Continue with Lipitor.
[2016-06-17] MEDS: LOVENOX SUBQ SCH (20:11)
[2016-06-17] MEDS: PROTONIX IV SCH (20:15)
[2016-06-17] MEDS: SODIUM CHLORIDE 0.9% INJ SCH (20:15)
[2016-06-17] MEDS: LANTUS SUBQ SCH (20:24)
[2016-06-18] MEDS: ZOSYN 3.375 GM/NS 50 ML IV SCH ×4 (03:07→21:31)
[2016-06-18] MEDS: SOLU-MEDROL IV SCH ×3 (03:07→21:30)
[2016-06-18] MEDS: DUONEB (A & A) INH SCH ×6 (03:31→23:23)
[2016-06-18] MEDS: HUMULIN R SUBQ SCH ×4 (06:07→21:39)
[2016-06-18 06:55] LABS: BASO% 0.1 % (0.0-0.8); IMM GRAN% 0.7 % (0.0-0.5); LYMPH# 0.44 X1000 (1.2-3.4); LYMPH% 2.9 % (20.5-51.1); MANUAL DIFF NEEDED? YES; MCH 25.6 PG (27-31); MCV 82.6 FL (81-99); MONO# 0.33 X1000 (0.11-0.59); MONO% 2.2 % (1.7-9.3); NEUT% 94.1 % (42.2-75.2); PLT 255 X1000 (130-400); RBC 3.51 XMIL (4.2-5.4)
[2016-06-18 07:14] LABS: BANDS 6 % (0-1); LYMPHS 4 % (21-51)
[2016-06-18 07:15] LABS: AGAP 8; BUN 21 mg/dL (8-22); CALCIUM 7.9 mg/dL (8.8-10.2); CHLORIDE 102 mmol/L (98-107); COSMO 288; POTASSIUM 3.8 mmol/L (3.5-5.1); SODIUM 141 mmol/L (136-145); TCO2 31 mmol/L (25-35)
[2016-06-18] MEDS: SPIRIVA INH SCH (09:24)
[2016-06-18] MEDS: ADVAIR 500/50 DISKUS INH SCH ×2 (09:25→19:29)
[2016-06-18] MEDS: TUSSIONEX LIQUID PO SCH ×2 (09:54→21:31)
[2016-06-18] MEDS: MORPHINE IV PRN ×3 (09:57→22:29)
[2016-06-18] MEDS: LEXAPRO PO SCH (10:03)
[2016-06-18] MEDS: LIPITOR PO SCH (10:03)
[2016-06-18] MEDS: ASPIRIN PO SCH (10:04)
[2016-06-18] MEDS: XANAX PO SCH ×2 (10:04→21:30)
[2016-06-18] MEDS: MYCOSTATIN SUSP PO SCH ×4 (10:05→21:00)
[2016-06-18] MEDS: APRESOLINE PO SCH ×2 (10:10→21:39)
[2016-06-18] MEDS: LEVAQUIN 750 MG/D5W 150 ML IV SCH (15:34)
--- NOTE | 2016-06-18 20:38 | PROGRESS NOTE ---
DATE: 06/18/2016 SUBJECTIVE: This patient is about the same compared with yesterday. She is still complaining of shortness of breath. I increased the respiratory therapy from 4 a day to 6 times a day. The Palliative Care Team is on board. I had a conversation with the daughter and also with the patient separately. The plan for this patient is once this patient is better, she can go to a rehab center. If she does not tolerate that, she will go to a [facility] with hospice. OBJECTIVE: Vital Signs: Temperature 97.8 degrees, pulse 94, respiratory rate 20, blood pressure 157/67, O2 saturation in the 98% on nasal cannula. HEENT: Head normocephalic. No trauma. PERRLA. Neck: Supple. No JVD. No masses. Chest: Poor air entry bilaterally. Prolonged expiratory phase. Scattered wheezing. Mild rales at the bases. Abdomen: Soft, nontender, nondistended. No hepatosplenomegaly. Cardiovascular: Regular rhythm and rate. No murmurs. No gallops. No rubs. Tachycardic. Extremities: No edema. No clubbing. No cyanosis. Neurological: The patient is alert and oriented x3. No focal neurological deficits. LABORATORY: WBC 15.3, hemoglobin 9, hematocrit 29, platelet 255,000. Sodium 141, potassium 3.8, chloride 102, bicarbonate 31, BUN 21, creatinine 0.6, glucose 159, calcium 7.9. ASSESSMENT AND PLAN: 1. Acute on chronic hypercapnic respiratory failure. This patient feels about the same compared with yesterday. She is still having shortness of breath. I will continue with steroids, bronchodilators and IV antibiotics. She is still on oxygen as well. The plan for this patient is once she is feeling better she can go to a rehab center. If she does not tolerate the rehabilitation, she will go to a long-term facility with hospice. 2. Acute on chronic pulmonary disease exacerbation. This is likely end-stage chronic obstructive pulmonary disease. Continue with current medication. This patient is on nasal cannula today. She is still complaining of shortness of breath. 3. Pneumonia. Continue with IV antibiotics. 4. Diabetes. Her hemoglobin A1c is 7.3. We will continue with her insulin. 5. Right upper lung mass versus nodule. Aware. Pulmonary Department is following this patient. 6. Protein calorie malnutrition. Continue with Boost with each meal. 7. Situational depression. Continue with Lexapro. 8. Dyslipidemia. Continue with Lipitor.
[2016-06-18] MEDS: LANTUS SUBQ SCH (21:31)
[2016-06-18] MEDS: PROTONIX IV SCH (21:31)
[2016-06-18] MEDS: LOVENOX SUBQ SCH (21:31)
[2016-06-18] MEDS: SODIUM CHLORIDE 0.9% INJ SCH (21:31)
[2016-06-19] MEDS: ZOSYN 3.375 GM/NS 50 ML IV SCH ×4 (02:07→21:45)
[2016-06-19] MEDS: MORPHINE IV PRN ×4 (03:17→14:44)
[2016-06-19] MEDS: SOLU-MEDROL IV SCH ×3 (03:18→21:46)
[2016-06-19] MEDS: DUONEB (A & A) INH SCH ×6 (03:38→23:19)
[2016-06-19] MEDS: HUMULIN R SUBQ SCH ×5 (06:10→21:49)
[2016-06-19 07:21] LABS: BASO% 0.1 % (0.0-0.8); EOS# 0.02 X1000 (0.0-0.7); EOS% 0.1 % (0.0-10.0); HEMATOCRIT 28.2 % (37.0-47.0); HEMOGLOBIN 8.9 g/dL (12.0-16.0); IMM GRAN# 0.12 X1000 (0.0-0.04); IMM GRAN% 0.8 % (0.0-0.5); LYMPH# 0.28 X1000 (1.2-3.4); LYMPH% 1.8 % (20.5-51.1); MANUAL DIFF NEEDED? YES; MCH 25.9 PG (27-31); MCHC 31.6 g/dL (33-37); MCV 82.2 FL (81-99); MONO# 0.32 X1000 (0.11-0.59); MPV 9.5 FL (7.4-10.4); NEUT% 95.2 % (42.2-75.2); PLT 220 X1000 (130-400); RBC 3.43 XMIL (4.2-5.4)
[2016-06-19 07:24] LABS: AGAP 6; BUN 21 mg/dL (8-22); CALCIUM 8.1 mg/dL (8.8-10.2); CHLORIDE 105 mmol/L (98-107); COSMO 292; POTASSIUM 3.8 mmol/L (3.5-5.1); SODIUM 143 mmol/L (136-145); TCO2 32 mmol/L (25-35)
[2016-06-19 07:32] LABS: BANDS 12 % (0-1); LYMPHS 2 % (21-51); MONO 2 % (1-9)
[2016-06-19] MEDS: ADVAIR 500/50 DISKUS INH SCH ×2 (07:50→19:55)
[2016-06-19] MEDS: TUSSIONEX LIQUID PO SCH ×2 (08:05→21:45)
[2016-06-19] MEDS: LIPITOR PO SCH (08:06)
[2016-06-19] MEDS: MYCOSTATIN SUSP PO SCH ×4 (08:07→21:48)
[2016-06-19] MEDS: XANAX PO SCH ×2 (08:07→21:46)
[2016-06-19] MEDS: LEXAPRO PO SCH (08:07)
[2016-06-19] MEDS: APRESOLINE PO SCH ×2 (08:07→21:46)
[2016-06-19] MEDS: ASPIRIN PO SCH (08:07)
[2016-06-19] MEDS: LEVAQUIN 750 MG/D5W 150 ML IV SCH (14:39)
--- NOTE | 2016-06-19 16:26 | PROGRESS NOTE ---
DATE: 06/19/2016 SUBJECTIVE: Ms. Apodaca is breathing better. She is eating a little better, getting a little bit stronger by report. To review, she was admitted on 06/01/2016. A 71-year-old female with history of COPD and home oxygen, congestive heart failure, hypertension, hyperlipidemia, who presented with severe shortness of breath that has been progressing over the last couple weeks. She was actually treated for pneumonia with oral antibiotics per Dr. Darnell at the end of April, but since then she has not had any relief of shortness of breath. Increasing cough with yellow sputum production. She had been having increased cough and sputum production, but the son stated that she has not been eating well. Actually had a CT of her chest done 05/02 which showed COPD, fibrotic changes in the right upper lobe, pulmonary nodule suspicious for scar and carcinoma. Further evaluation was recommended and she was moved to the unit. She required BiPAP and showed slow improvement. She had community-acquired pneumonia, and she is now on the floor. OBJECTIVE: General: On exam today, she is awake and alert. Vital Signs: Temperature 98.0 degrees, pulse 107, respirations 32, blood pressure 155/72. Lungs: Clear in all lung shaw. Cardiovascular exam: Regular rhythm and rate without murmur or S3. : Urine output from yesterday 775 mL. Blood sugars 250, 171, and 242. ASSESSMENT/PLAN: 1. Acute on chronic hypercapnic respiratory failure. Patient showing improvement. Air exchange and gas exchange improved. Still has some shortness of breath. She was to continue the steroids, bronchodilators, intravenous antibiotics and she is on supplemental oxygen. Hope to get her to rehabilitation center to improve her strength. 2. Acute on chronic pulmonary disease exacerbation, likely end-stage chronic obstructive pulmonary disease pulmonary disease. Continue present measures. 3. Pneumonia, community acquired. She was on intravenous antibiotics. This is improving. 4. Diabetes mellitus type 2. Hemoglobin A1c was 7.3. Continue insulin sliding scale. 5. Right upper lung mass versus nodule where pulmonary department is following. 6. Protein calorie malnutrition. Continue Boost with every meal. 7. Situational depression. Continue Lexapro. 8. Dyslipidemia. Reviewed her orders. Continue present measures.
--- NOTE | 2016-06-19 16:56 | PALLIATIVE CARE PROGRESS NOTE ---
DATE: 06/19/2016 SUBJECTIVE: Ms. Vallecillo continues to complain of shortness of breath. OBJECTIVE: General: This is a 71-year-old, female, who appears in mild respiratory distress. HEENT: Atraumatic, normocephalic. Neck: Trachea is midline. Cardiovascular: Increased rate. Regular rhythm. Pulmonary: Lung sounds are diminished with scattered rhonchi. Respirations are labored. Abdomen: Soft. Bowel sounds are active. Extremities: Pulses are palpable. Skin: Otherwise warm and dry. ASSESSMENT AND PLAN: Ms. Apodaca continues to complain of shortness of breath. She states when morphine is given, it is effective. I would recommend that the ordered Ativan is also utilized to help with the anxiety associated with her dyspnea. Ms. Apodaca remains a full code. At this time, no family is at the bedside and she is unsure of her discharge plan. She states that physical therapy is working with her and she does feel stronger. The palliative care team will continue to follow daily. Dictated by KEO Lima for Declan Escobedo MD
[2016-06-19] MEDS: ATIVAN IV PRN (17:03)
[2016-06-19] MEDS: LOVENOX SUBQ SCH (21:45)
[2016-06-19] MEDS: PROTONIX IV SCH (21:47)
[2016-06-19] MEDS: LANTUS SUBQ SCH (21:47)
[2016-06-20] MEDS: ZOSYN 3.375 GM/NS 50 ML IV SCH ×4 (03:02→21:57)
[2016-06-20] MEDS: SOLU-MEDROL IV SCH ×3 (03:40→21:57)
[2016-06-20] MEDS: DUONEB (A & A) INH SCH ×6 (03:51→23:05)
[2016-06-20] MEDS: HUMULIN R SUBQ SCH ×4 (06:28→21:00)
[2016-06-20] MEDS: ADVAIR 500/50 DISKUS INH SCH ×2 (07:27→19:43)
--- NOTE | 2016-06-20 07:55 | Diag Imaging Result Document ---
PROCEDURE NAME: CHEST-PORTABLE - 06/20/2016 SINGLE FRONTAL RADIOGRAPH OF THE CHEST: COMPARISON: 06/13/2016. FINDINGS: There is persistent left basilar atelectasis. It is perhaps slightly worse than the previous study. No new consolidations are identified otherwise. Cardiac silhouette is stable. IMPRESSION: Left basilar atelectasis that may be marginally worse than the previous study.
[2016-06-20] MEDS: LIPITOR PO SCH (09:32)
[2016-06-20] MEDS: LEXAPRO PO SCH (09:33)
[2016-06-20] MEDS: APRESOLINE PO SCH ×2 (09:35→21:57)
[2016-06-20] MEDS: ASPIRIN PO SCH (09:35)
[2016-06-20] MEDS: MORPHINE IV PRN ×4 (09:36→18:17)
[2016-06-20] MEDS: TUSSIONEX LIQUID PO SCH ×2 (09:46→21:57)
[2016-06-20] MEDS: XANAX PO SCH ×2 (09:46→21:57)
[2016-06-20] MEDS: MYCOSTATIN SUSP PO SCH ×4 (09:46→21:00)
--- NOTE | 2016-06-20 13:40 | PROGRESS NOTE ---
DATE: 06/20/2016 SUBJECTIVE: Ms. Apodaca breathing is better. She says she is stronger and she actually sat up and they stood her up today with physical therapy. OBJECTIVE: Vital Signs: She remains afebrile, pulse 100, respirations 26, blood pressure 183/89. Eyes: Pupils are equal and round. Neck: CVP less than 6 cm. Lungs: Clear in all lung shaw. Cardiovascular: Regular rhythm and rate without murmur or S3. Urine output was 500 mL. LAB: White count 15,950, hematocrit 28, platelet count 220,000. Blood sugars 192, 221, 288. Chest x-ray, left basilar atelectasis that may be marginally worse than the previous study that was through this morning. ASSESSMENT AND PLAN: 1. Acute on chronic hypercapnic respiratory failure. Patient showing some improvement in air exchange and gas exchange. Continue present regimen. Continue steroids, bronchodilators, intravenous antibiotics, supplemental O2. 2. Acute on chronic pulmonary disease exacerbation likely end-stage chronic obstructive pulmonary disease. 3. Pneumonia, community-acquired, which is improving. Continue present antibiotics. 4. Diabetes mellitus type 2. Blood sugars under good control. 5. Right upper lung mass versus nodule. Will pursue follow up when able. 6. Protein calorie malnutrition. Continue Boost with every meal. 7. Situational depression. Continue her Lexapro. Continue physical therapy for general weakness and deconditioning. Hope to get her to rehab when able. 8. Review of her medications. She is on Zosyn. She is on Levaquin.
[2016-06-20] MEDS: LEVAQUIN 750 MG/D5W 150 ML IV SCH (15:47)
--- NOTE | 2016-06-20 16:10 | PALLIATIVE CARE PROGRESS NOTE ---
DATE: 06/20/2016 SUBJECTIVE: Ms. Apodaca appears to be breathing easier. She continues to complain of dyspnea. She did have morphine administered prior to my visit and she states that it is effective. OBJECTIVE: General: This is a 71-year-old, female, who does not appear to be in any acute distress. HEENT: Atraumatic, normocephalic. Neck: Trachea is midline. Pulmonary: Lung sounds are slightly diminished. Scattered rhonchi auscultated bilaterally. Cardiovascular: Increased rate, regular rhythm. Abdomen: Soft. Bowel sounds are active. Extremities: Pulses are palpable. Skin: Otherwise warm and dry. ASSESSMENT AND PLAN: Ms. Apodaca' breathing appears to be in parent today; however, she continues to complain of dyspnea. She states that when morphine is administered, it is effective. I reviewed her current morphine order and made her aware that she can have morphine every 2 hours as needed. I also spoke with the staff regarding administering Ativan to help with her anxiety related to her dyspnea. Ms. Apodaca states that she sat on the side of the bed today with physical therapy and feels that she is getting stronger. The palliative care team will continue to follow daily until discharge. Dictated by KEO Lima for Declan Escobedo MD
[2016-06-20] MEDS: SODIUM CHLORIDE 0.9% INJ SCH (21:58)
[2016-06-20] MEDS: LOVENOX SUBQ SCH (21:58)
[2016-06-20] MEDS: PROTONIX IV SCH (21:58)
[2016-06-20] MEDS: LANTUS SUBQ SCH (21:58)
[2016-06-21] MEDS: ZOSYN 3.375 GM/NS 50 ML IV SCH ×4 (02:56→20:35)
[2016-06-21] MEDS: SOLU-MEDROL IV SCH ×3 (03:03→20:26)
[2016-06-21] MEDS: DUONEB (A & A) INH SCH ×6 (04:04→22:56)
[2016-06-21] MEDS: HUMULIN R SUBQ SCH ×4 (06:16→21:40)
[2016-06-21] MEDS: MORPHINE IV PRN ×3 (07:32→22:34)
[2016-06-21] MEDS: ADVAIR 500/50 DISKUS INH SCH ×2 (08:36→19:35)
[2016-06-21] MEDS: MYCOSTATIN SUSP PO SCH ×3 (09:57→20:35)
[2016-06-21] MEDS: XANAX PO SCH ×2 (09:57→21:42)
[2016-06-21] MEDS: TUSSIONEX LIQUID PO SCH ×2 (09:57→21:42)
[2016-06-21] MEDS: LEXAPRO PO SCH (09:58)
[2016-06-21] MEDS: LIPITOR PO SCH (09:59)
[2016-06-21] MEDS: ASPIRIN PO SCH (09:59)
[2016-06-21] MEDS: APRESOLINE PO SCH ×2 (10:01→20:27)
[2016-06-21] MEDS: LEVAQUIN 750 MG/D5W 150 ML IV SCH (15:23)
--- NOTE | 2016-06-21 19:02 | PROGRESS NOTE ---
DATE: 06/21/2016 SUBJECTIVE: Ms. Apodaca is shaking a little bit, tremulous now. She recently had a breathing treatment and also went through physical therapy. She feels like she is encouraged. She is getting a little stronger, eating a little better, breathing is a little better. OBJECTIVE: Vital Signs: Temp 97.8 degrees, pulse 100, respirations 20, blood pressure 176/70. Lungs: Clear in all lung shaw. Cardiovascular: Regular rhythm and rate without murmur or S3. Abdomen: Soft. Skin: Warm and dry. URINE: Good urine output of 1500 mL. LABS: From : White count 15,950, hematocrit 28, platelet count 220,000. Blood sugar is 181, 155, 161. ASSESSMENT AND PLAN: 1. Acute on chronic hypercapnic respiratory failure which has showed steady improvement. Underlying COPD which may be approaching end stage. 2. Pneumonia community acquired, improved. Continue present antibiotics. 3. Diabetes mellitus type 2. Sugars are under good control. 4. Right upper lobe lung mass versus nodule. We will need to follow up with that. Pulmonary involved. 5. Protein calorie malnutrition. Improving p.o. intake. 6. General weakness and deconditioning. Continue physical therapy. 7. Situational depression. She has a history of depression and anxiety already. We will continue present orders. 8. I have reviewed her medications. I do not see any change at this time. She is on Zosyn q.6 hours. She is on methylprednisone 60 mg IV q.8 hours. I think we can probably cut that down tomorrow.
[2016-06-21] MEDS: PROTONIX IV SCH (20:26)
[2016-06-21] MEDS: LOVENOX SUBQ SCH (20:26)
[2016-06-21] MEDS: SODIUM CHLORIDE 0.9% INJ SCH (20:26)
[2016-06-21] MEDS: LANTUS SUBQ SCH (20:27)
[2016-06-22] MEDS: DUONEB (A & A) INH SCH ×6 (03:10→23:25)
[2016-06-22] MEDS: ZOSYN 3.375 GM/NS 50 ML IV SCH ×4 (03:50→20:21)
[2016-06-22] MEDS: SOLU-MEDROL IV SCH ×3 (04:14→20:21)
[2016-06-22] MEDS: HUMULIN R SUBQ SCH ×4 (06:14→22:33)
[2016-06-22] MEDS: MORPHINE IV PRN ×5 (06:24→18:08)
[2016-06-22] MEDS: ADVAIR 500/50 DISKUS INH SCH ×2 (07:29→19:41)
--- NOTE | 2016-06-22 07:57 | Diag Imaging Result Document ---
PROCEDURE NAME: CHEST-PORTABLE - 06/22/2016 PORTABLE CHEST X-RAY: COMPARISON: 06/20/2016. FINDINGS: Stable left basilar airspace opacity compatible with atelectasis or infiltrate. Heart size and pulmonary vascularity is grossly normal. No pneumothorax or large effusion. IMPRESSION: No change from prior.
[2016-06-22] MEDS: ASPIRIN PO SCH (10:33)
[2016-06-22] MEDS: XANAX PO SCH ×2 (10:33→20:20)
[2016-06-22] MEDS: LIPITOR PO SCH (10:33)
[2016-06-22] MEDS: LEXAPRO PO SCH (10:33)
[2016-06-22] MEDS: APRESOLINE PO SCH ×2 (10:34→20:25)
[2016-06-22] MEDS: MYCOSTATIN SUSP PO SCH ×4 (10:34→20:25)
[2016-06-22] MEDS: TUSSIONEX LIQUID PO SCH ×2 (13:08→20:21)
[2016-06-22] MEDS: LEVAQUIN 750 MG/D5W 150 ML IV SCH (15:55)
--- NOTE | 2016-06-22 16:06 | PROGRESS NOTE ---
DATE: 06/22/2016 SUBJECTIVE: Ms. Apodaca is a little stronger, breathing a little better. The tremor seems to be less. She is eating a little better. I think she is encouraged. OBJECTIVE: Temperature 97.8 degrees, pulse 99, respirations 19, blood pressure 171/69. Lungs are clear in all lung shaw. Cardiovascular: Regular rhythm and rate without murmur or S3. Abdomen is soft. Skin is warm and dry. LABORATORY DATA: Lab from 06/19/2016 unremarkable chemistries. Blood sugar 161, 110, and 133. Chest x-ray from today: No change. Stable left basilar airspace opacity compatible with atelectasis or infiltrate. Heart size and pulmonary vascularity grossly normal. ASSESSMENT AND PLAN: 1. Wxfxm-hy-pfubrix hypercapnic respiratory failure which has shown steady improvement. 2. Underlying chronic obstructive pulmonary disease which is advanced. 3. Community-acquired pneumonia, improving. 4. Diabetes mellitus, type 2. Sugar is under good control. 5. Right upper lobe mass versus nodule. Will have to be followed up when able. 6. Protein calorie malnutrition and p.o. intake is improving every day. 7. General weakness and deconditioning. This is improved with physical therapy. 8. Situational depression, aware. 9. History of depression and anxiety. Looking over orders, continue present regimen. The patient seems to be improving.
[2016-06-22] MEDS: PROTONIX IV SCH (20:20)
[2016-06-22] MEDS: SODIUM CHLORIDE 0.9% INJ SCH (20:20)
[2016-06-22] MEDS: LANTUS SUBQ SCH (20:21)
[2016-06-22] MEDS: LOVENOX SUBQ SCH (20:21)
[2016-06-23] MEDS: MORPHINE IV PRN ×6 (00:18→19:29)
[2016-06-23] MEDS: SOLU-MEDROL IV SCH ×3 (03:12→20:57)
[2016-06-23] MEDS: ZOSYN 3.375 GM/NS 50 ML IV SCH ×4 (03:12→20:57)
[2016-06-23] MEDS: DUONEB (A & A) INH SCH ×6 (03:25→23:14)
[2016-06-23] MEDS: HUMULIN R SUBQ SCH ×4 (06:14→20:59)
[2016-06-23] MEDS: ADVAIR 500/50 DISKUS INH SCH ×2 (07:38→19:55)
[2016-06-23] MEDS: XANAX PO SCH ×2 (08:15→21:02)
[2016-06-23] MEDS: APRESOLINE PO SCH ×2 (08:16→20:59)
[2016-06-23] MEDS: LEXAPRO PO SCH (08:16)
[2016-06-23] MEDS: ASPIRIN PO SCH (08:16)
[2016-06-23] MEDS: LIPITOR PO SCH (08:16)
[2016-06-23] MEDS: TUSSIONEX LIQUID PO SCH ×2 (08:19→21:03)
[2016-06-23] MEDS: MYCOSTATIN SUSP PO SCH ×5 (09:15→21:00)
[2016-06-23] MEDS: LEVAQUIN 750 MG/D5W 150 ML IV SCH (14:09)
[2016-06-23] MEDS ORDERED: LASIX IV ONE (14:47)
--- NOTE | 2016-06-23 15:29 | PROGRESS NOTE ---
DATE: 06/23/2016 SUBJECTIVE: She is breathing better, a little stronger, eating better so I think she is encouraged. Nasal cannula in place. OBJECTIVE: Vital signs: Temperature 97.8 degrees, pulse 108, respirations 18, blood pressure 174/77. Lungs: Are clear in all lung shaw. Cardiovascular: Regular rhythm and rate without murmur or S3. Abdomen: Soft. Skin: Is warm and dry. Urine output 1000 mL. LAB: Blood sugar 190, 203, 226. White count from 17 was still elevated at 15,000 so will repeat those tomorrow. ASSESSMENT AND PLAN: 1. Acute on chronic hypercapnic respiratory failure showing steady improvement. 2. Underlying chronic obstructive pulmonary disease advanced stage. 3. Community-acquired pneumonia improving. 4. Diabetes mellitus type 2. Sugars under good control. 5. Right upper lobe mass versus nodule. Have to be followed up on. 6. Protein calorie malnutrition. This improving with p.o. intake. 7. General weakness and deconditioning. Improving with this as well. 8. Depression and anxiety. I think she is showing improvement in that area as well. Reviewed all of the orders and medications, still on Zosyn and Levaquin but making good improvement. She is on methylprednisone 60 mg IV q.8, think we can go down to 40 q.12. Continue to work on some of the peripheral swelling. Will give her some Lasix today.
[2016-06-23] MEDS: LOVENOX SUBQ SCH (20:57)
[2016-06-23] MEDS: PROTONIX IV SCH (20:58)
[2016-06-23] MEDS: SODIUM CHLORIDE 0.9% INJ SCH (20:58)
[2016-06-23] MEDS: LANTUS SUBQ SCH (20:58)
[2016-06-24] MEDS: NORCO-7.5 PO PRN ×5 (01:15→22:19)
[2016-06-24] MEDS: DUONEB (A & A) INH SCH ×6 (03:25→23:30)
[2016-06-24] MEDS: ZOSYN 3.375 GM/NS 50 ML IV SCH ×5 (03:55→22:57)
[2016-06-24] MEDS: SOLU-MEDROL IV SCH ×4 (03:55→22:57)
[2016-06-24] MEDS: HUMULIN R SUBQ SCH ×4 (06:15→22:23)
[2016-06-24 06:19] LABS: BASO% 0.1 % (0.0-0.8); HEMATOCRIT 28.4 % (37.0-47.0); IMM GRAN# 0.06 X1000 (0.0-0.04); IMM GRAN% 0.4 % (0.0-0.5); LYMPH# 0.29 X1000 (1.2-3.4); LYMPH% 1.9 % (20.5-51.1); MANUAL DIFF NEEDED? YES; MCH 26.2 PG (27-31); MCHC 31.7 g/dL (33-37); MCV 82.6 FL (81-99); MONO# 0.44 X1000 (0.11-0.59); MPV 9.9 FL (7.4-10.4); NEUT% 94.6 % (42.2-75.2); PLT 182 X1000 (130-400); RBC 3.44 XMIL (4.2-5.4)
[2016-06-24 06:32] LABS: INR 1.06; PROTIME 11.2 Seconds (9.2-11.7)
[2016-06-24 06:36] LABS: LYMPHS 2 % (21-51); MONO 2 % (1-9)
[2016-06-24 06:44] LABS: AGAP 9; BUN 20 mg/dL (8-22); CALCIUM 7.9 mg/dL (8.8-10.2); CHLORIDE 101 mmol/L (98-107); COSMO 292; MAGNESIUM 1.8 mg/dL (1.5-2.7); POTASSIUM 3.5 mmol/L (3.5-5.1); SODIUM 143 mmol/L (136-145); TCO2 33 mmol/L (25-35)
[2016-06-24] MEDS: ADVAIR 500/50 DISKUS INH SCH ×2 (07:46→19:30)
[2016-06-24] MEDS: ASPIRIN PO SCH (09:08)
[2016-06-24] MEDS: XANAX PO SCH ×2 (09:08→22:23)
[2016-06-24] MEDS: TUSSIONEX LIQUID PO SCH ×2 (09:08→22:18)
[2016-06-24] MEDS: LIPITOR PO SCH (09:08)
[2016-06-24] MEDS: LEXAPRO PO SCH (09:09)
[2016-06-24] MEDS: APRESOLINE PO SCH ×2 (09:09→22:20)
[2016-06-24] MEDS: MYCOSTATIN SUSP PO SCH ×4 (09:09→22:18)
--- NOTE | 2016-06-24 10:12 | Diag Imaging Result Document ---
PROCEDURE NAME: CHEST-2 VIEWS - 06/24/2016 TWO VIEWS OF THE CHEST: FINDINGS: There is still some left pleural fluid. There is hazy opacity in the left lower lobe presumably due to atelectasis or pneumonia. Overall, the appearance of the chest has not changed appreciably since 06/22/2016. The nodular opacities in the right upper lobe near the hilum are again noted. This was previously demonstrated on CT on 06/01/2016. IMPRESSION: Left lower lobe atelectasis versus pneumonia with small left pleural effusion. Essentially stable since 06/22/2016.
[2016-06-24] MEDS ORDERED: LASIX PO ONE (12:55)
--- NOTE | 2016-06-24 15:04 | PROGRESS NOTE ---
DATE: 06/24/2016 SUBJECTIVE: She was upset. She feels like her fluids are building up. Her IV came out. She wanted something for fluid and felt like I deserted her. OBJECTIVE: Vital signs: Temperature 97.9 degrees, pulse 105, respirations 18, blood pressure 152/86. Lungs: Are clear in all lung shaw. Cardiovascular: Regular rhythm and rate without murmur or S3. Abdomen: Soft. Skin: Is warm and dry. : Urine output a little over 3000, 3.5 L. LABORATORY: White count 14,880, hematocrit 24 platelet count 182,000. Chemistry: Sodium 143, potassium 3.5, chloride 105, bicarb 33, BUN 20, creatinine 0.8, blood sugars 183, 177, 138. IMAGING: Chest x-ray from this morning, left lower lobe atelectasis versus pneumonia with small left pleural effusion essentially stable since 06/22/2014. ASSESSMENT AND PLAN: 1. Acute on chronic hypercapnic respiratory failure. Showing steady improvement. 2. Underlying chronic obstructive pulmonary disease, advanced age. 3. Community-acquired pneumonia, improving. 4. Diabetes mellitus type 2. Sugars under good control. 5. Right lower lobe mass versus nodule, follow up. 6. Protein calorie malnutrition, improving with p.o. intake. 7. General weakness and deconditioning. 8. Depression and anxiety. We need to make sure her fluids are her turned off. I am going to decrease her prednisone and we are going to give her Lasix p.o. and I am going to give her I think 60 mg p.o. twice a day. Cut the methylprednisone down to 40 mg q.12. Fluids are cut down as well. Continue I think the Levaquin for now.
[2016-06-24] MEDS: LEVAQUIN 750 MG/D5W 150 ML IV SCH (17:00)
[2016-06-24 18:51] LABS: URINE SOURCE CLEAN CATCH
[2016-06-24 18:55] LABS: BILIRUBIN URINE NEGATIVE (NEGATIVE); BLOOD URINE LARGE (NEGATIVE); COLOR ORANGE; GLUCOSE URINE NEGATIVE (NEGATIVE); LEUKOCYTES URINE LARGE (NEGATIVE); NITRITE URINE NEGATIVE (NEGATIVE); PROTEIN URINE 70 mg/dL (NEGATIVE); SP GRAVITY URINE 1.019; TURBIDITY URINE HAZY (CLEAR); UROBILINOGEN URINE NORMAL (NORMAL)
[2016-06-24 18:56] LABS: UR EPITHELIAL CELLS <10 /HPF (<10); URINE BACTERIA NEGATIVE /HPF; URINE MICRO REVIEW NEEDED? YES; URINE RBC TNTC /HPF (<10); URINE WBC TNTC /HPF (<10)
[2016-06-24 19:02] LABS: URINE CASTS NONE SEEN; URINE CRYSTALS NONE SEEN; URINE SMALL ROUND CELLS NONE SEEN
[2016-06-24] MEDS: LASIX PO SCH (22:19)
[2016-06-24] MEDS: LOVENOX SUBQ SCH (22:20)
[2016-06-24] MEDS: LANTUS SUBQ SCH (22:23)
[2016-06-24] MEDS: PROTONIX IV SCH (22:57)
[2016-06-25] MEDS: DUONEB (A & A) INH SCH ×6 (03:37→23:31)
[2016-06-25] MEDS: ZOSYN 3.375 GM/NS 50 ML IV SCH ×4 (04:52→21:22)
[2016-06-25] MEDS: SOLU-MEDROL IV SCH ×3 (04:53→23:52)
[2016-06-25] MEDS: HUMULIN R SUBQ SCH ×4 (06:30→21:27)
[2016-06-25] MEDS: ADVAIR 500/50 DISKUS INH SCH ×2 (07:58→19:25)
[2016-06-25] MEDS ORDERED: NS 250 ML ONE (08:39)
[2016-06-25] MEDS: NORCO-7.5 PO PRN (08:56)
[2016-06-25] MEDS: XANAX PO SCH ×2 (10:10→21:25)
[2016-06-25] MEDS: LIPITOR PO SCH (10:10)
[2016-06-25] MEDS: APRESOLINE PO SCH ×2 (10:10→21:25)
[2016-06-25] MEDS: LASIX PO SCH ×2 (10:10→21:24)
[2016-06-25] MEDS: ASPIRIN PO SCH (10:10)
[2016-06-25] MEDS: LEXAPRO PO SCH (10:10)
[2016-06-25] MEDS: TUSSIONEX LIQUID PO SCH ×2 (10:11→21:23)
[2016-06-25] MEDS: MYCOSTATIN SUSP PO SCH ×4 (14:16→21:26)
[2016-06-25] MEDS: LEVAQUIN 750 MG/D5W 150 ML IV SCH (15:48)
[2016-06-25] MEDS: ATIVAN IV PRN (16:41)
[2016-06-25] MEDS: LOVENOX SUBQ SCH (21:24)
[2016-06-25] MEDS: SODIUM CHLORIDE 0.9% INJ SCH (21:24)
[2016-06-25] MEDS: PROTONIX IV SCH (21:24)
[2016-06-25] MEDS: LANTUS SUBQ SCH (21:26)
[2016-06-26] MEDS: ZOSYN 3.375 GM/NS 50 ML IV SCH ×2 (03:00→08:25)
[2016-06-26] MEDS: DUONEB (A & A) INH SCH ×6 (03:49→22:58)
[2016-06-26] MEDS: HUMULIN R SUBQ SCH ×4 (06:17→21:59)
[2016-06-26] MEDS: ADVAIR 500/50 DISKUS INH SCH ×2 (07:55→19:38)
[2016-06-26] MEDS: TUSSIONEX LIQUID PO SCH ×2 (08:24→21:59)
[2016-06-26] MEDS: APRESOLINE PO SCH ×2 (08:24→21:59)
[2016-06-26] MEDS: ASPIRIN PO SCH (08:24)
[2016-06-26] MEDS: LASIX PO SCH ×2 (08:24→21:59)
[2016-06-26] MEDS: LEXAPRO PO SCH (08:24)
[2016-06-26] MEDS: XANAX PO SCH ×2 (08:24→21:58)
[2016-06-26] MEDS: MYCOSTATIN SUSP PO SCH ×4 (08:25→21:59)
[2016-06-26] MEDS: LIPITOR PO SCH (08:25)
[2016-06-26] MEDS: MORPHINE IV PRN ×3 (08:25→16:56)
--- NOTE | 2016-06-26 09:05 | PROGRESS NOTE ---
DATE: 06/25/2016 SUBJECTIVE: She had called her family and said that she thought that I had seen her early this morning and I had frightened her, and I reassured the family I had not seen her this morning, I had seen her yesterday. She had been upset about not having Lasix. She was oriented to where she was, person, place, and time. I did go in and see her with the family--this was about 1 o'clock in the afternoon. She is a little less shaky. She was able to walk and tolerating physical therapy a little better. She is breathing better. OBJECTIVE: Vital signs: Temp 98.2, pulse is 115, respirations 19, blood pressure 130/72. Lungs: Clear in all lung shaw. Cardiovascular: Regular rhythm and rate without murmur or S3. Urine output was 1800 mL. It seems like the fluid is going down in her arms and legs. LABS: Review of her lab from yesterday: White count is still a little elevated at 14,880. Her hematocrit was 28, platelet count 182,000. Blood sugars have been 101, 117, 179. CHEST X-RAY: Left lower lobe atelectasis, pneumonia with small left pleural effusion, essentially stable since 06/22/2016--that is from yesterday. ASSESSMENT AND PLAN: 1. Acute on chronic hypercapnic respiratory failure, steady improvement. 2. Underlying chronic obstructive pulmonary disease, she is advanced in age, so I think advanced COPD. 3. Community-acquired pneumonia, improving. 4. Diabetes mellitus type 2, sugars under good control. 5. Right lower lobe mass versus nodule. We will need to, at some point, follow up on this when we are able to follow up on that lung mass. Dr. Escobedo has seen her. 6. Protein calorie malnutrition, which is improving. 7. General weakness and deconditioning. Continue physical therapy. 8. Depression and anxiety. In looking over her orders, will continue her Lasix. She is a little bit upset about that. She thinks probably I have been giving her more Lasix, but she is getting Lasix 40 mg p.o. twice today. Right now, she is mobilized from the extracellular fluid. I think we will continue the Zosyn. I think we can decrease the methylprednisolone, and I will see if I can decrease her down to 40 mg twice a day. I am going to decrease the dose of the hydrocodone to 5 mg and then maybe only q.6 h. p.r.n. to see if that will help. I am going to change the Ativan to 1 mg p.o. q.6 h. p.r.n. to see if that will help as well. She is very anxious. She is already on Xanax 0.25 mg p.o. b.i.d.
[2016-06-26] MEDS: SOLU-MEDROL IV SCH ×2 (10:43→23:39)
--- NOTE | 2016-06-26 16:33 | PROGRESS NOTE ---
DATE: 06/26/2016 SUBJECTIVE: The patient has no focal complaints. OBJECTIVE: Vital signs: Blood pressure is 146/70, heart rate 116, respiratory rate 28, temperature 97.7, 95% on 4 L. Cardiovascular: Regular rate and rhythm. Pulmonary: Bilateral breath sounds clear to auscultation. GI: Abdomen is soft, nontender, and nondistended. Bowel sounds are positive. MAIN COMPLAINT: Her main complaint is a tear in the right lower extremity after a fall. PROBLEM LIST: 1. COPD exacerbation. She is on nebs and steroids and we will continue to follow. 2. Acute hypercapnic respiratory failure. She appears to be stable on her current level of oxygen. I think she still may be getting some intermittent BiPAP. 3. Left lower lobe pneumonia. She is currently on Zosyn. I think she has been taking that. She has been on that for 24 days; that is over three weeks. She still has somewhat of a white count but she is on some steroids. I think we may consider stopping that. 4. Disposition: Planning for rehab so we will continue to follow. Possible discharge in the next 1-2 days.
--- NOTE | 2016-06-26 16:49 | PALLIATIVE CARE PROGRESS NOTE ---
DATE: 06/26/2016 SUBJECTIVE: Ms. Apodaca is currently lying in the hospital bed. She states that her shortness of breath has improved. OBJECTIVE: General: This is a 71-year-old female who does not appear to be in any distress. HEENT: Atraumatic, normocephalic. Neck: Trachea is midline. Cardiovascular: Increased rate. Regular rhythm. Pulmonary: Lung sounds are coarse with scattered rhonchi auscultated bilaterally. Respirations are labored with conversation. However, it appears that her dyspnea has improved at rest. Abdomen: Soft. Bowel sounds are active. Extremities: Pulses are palpable. Skin: Warm and dry. ASSESSMENT AND PLAN: Ms. Apodaca states that her dyspnea has improved. However, she continues to have shortness of breath with conversation and any slight exertion. At this point, it appears the plan is to discharge to rehab. [employer] tree [employer] worker is involved and referrals have been sent out for placement. Ms. Apodaca remains a full code. She states that she is working with physical therapy and feels that she is getting stronger. The palliative care team will follow daily until discharge. Dictated by KEO Lima for Declan Escobedo MD
[2016-06-26] MEDS: PROTONIX IV SCH (21:56)
[2016-06-26] MEDS: SODIUM CHLORIDE 0.9% INJ SCH (21:56)
[2016-06-26] MEDS: LOVENOX SUBQ SCH (21:57)
[2016-06-26] MEDS: LANTUS SUBQ SCH (21:59)
[2016-06-27] MEDS: DUONEB (A & A) INH SCH ×6 (03:23→22:40)
[2016-06-27] MEDS: HUMULIN R SUBQ SCH ×5 (06:07→22:24)
[2016-06-27 06:46] LABS: HEMATOCRIT 28.7 % (37.0-47.0); MCH 26.2 PG (27-31); MCHC 31.4 g/dL (33-37); MCV 83.4 FL (81-99); MPV 10.1 FL (7.4-10.4); RBC 3.44 XMIL (4.2-5.4)
[2016-06-27 06:58] LABS: CALCIUM 7.7 mg/dL (8.8-10.2); POTASSIUM 3.3 mmol/L (3.5-5.1)
[2016-06-27] MEDS: ADVAIR 500/50 DISKUS INH SCH ×2 (08:25→19:20)
[2016-06-27] MEDS: MYCOSTATIN SUSP PO SCH ×4 (08:52→22:25)
[2016-06-27] MEDS: ASPIRIN PO SCH (08:52)
[2016-06-27] MEDS: LASIX PO SCH ×2 (08:52→20:48)
[2016-06-27] MEDS: XANAX PO SCH ×2 (08:52→20:48)
[2016-06-27] MEDS: LIPITOR PO SCH (08:52)
[2016-06-27] MEDS: APRESOLINE PO SCH ×2 (08:52→20:49)
[2016-06-27] MEDS: LEXAPRO PO SCH (08:52)
[2016-06-27] MEDS: TUSSIONEX LIQUID PO SCH ×2 (08:52→20:47)
[2016-06-27] MEDS: MORPHINE IV PRN ×2 (08:58→21:40)
[2016-06-27] MEDS: SOLU-MEDROL IV SCH ×2 (11:02→23:51)
--- NOTE | 2016-06-27 12:44 | PROGRESS NOTE ---
DATE: 06/27/2016 Today Ms. Apodaca referred to be doing okay. Still continues to have some mild shortness of breath but according to her it is a whole lot better than before. OBJECTIVE: Vital signs: Blood pressure is 131/69, pulse over 89, respiration is 24, temperature 97.9 degrees. General: Ms. Apodaca is a 71-year-old female. She was in bed in mild respiratory distress. HEENT: Mucosa is pink and moist. Anicteric. Acyanotic. Neck: Supple. Chest: Air entry is bilaterally reduced. There is prolonged expiration phase of respiration. A few bilateral wheezes. Cardiovascular: Regular rate and rhythm. Abdomen: Soft, nontender. Extremity: One to 2+ pedal edema. CARDIOVASCULAR TECHNOLOGIST: Patient is alert and oriented x4. There is no focal neurological deficit. LABORATORY DATA: WBC is 12.10, hemoglobin is 9.0, platelet count is 135,000. Chemistry reviewed. Unremarkable except for potassium of 3.3, and glucose of 206. CURRENT MEDICATIONS INCLUDE: 1. Xanax. 2. Lipitor. 3. Lovenox 40 subcutaneous. 4. Lexapro. 5. Lasix 40 b.i.d. 6. Hydralazine 10 mg b.i.d. 7. Insulin 10 units at bedtime. 8. Methylprednisone 40 IV q.12. 9. Pantoprazole. 10. Advair. ASSESSMENT: 1. Acute on chronic respiratory failure. 2. COPD exacerbation. 3. Left lower lobe pneumonia. Patient is finished with antibiotic use. 4. History of diastolic heart failure. 5. Anxiety disorder. GENERAL PLAN: We are going to take the Daniels catheter out. We are going to continue with the current therapy. We anticipate the patient being discharged to a rehab within a day or 2. We are just pending on placement.
[2016-06-27] MEDS: PROTONIX IV SCH (20:47)
[2016-06-27] MEDS: SODIUM CHLORIDE 0.9% INJ SCH (20:47)
[2016-06-27] MEDS: LOVENOX SUBQ SCH (20:47)
[2016-06-27] MEDS: LANTUS SUBQ SCH (20:49)
[2016-06-28] MEDS: DUONEB (A & A) INH SCH ×6 (03:45→23:37)
[2016-06-28] MEDS: HUMULIN R SUBQ SCH ×3 (06:08→16:17)
[2016-06-28 06:49] LABS: HEMATOCRIT 29.2 % (37.0-47.0); HEMOGLOBIN 9.3 g/dL (12.0-16.0); IMM GRAN# 0.08 X1000 (0.0-0.04); IMM GRAN% 0.8 % (0.0-0.5); LYMPH# 0.31 X1000 (1.2-3.4); MANUAL DIFF NEEDED? YES; MCH 26.1 PG (27-31); MCHC 31.8 g/dL (33-37); MONO# 0.22 X1000 (0.11-0.59); MONO% 2.1 % (1.7-9.3); MPV 9.8 FL (7.4-10.4); NEUT% 94.1 % (42.2-75.2); PLT 132 X1000 (130-400); RBC 3.56 XMIL (4.2-5.4)
[2016-06-28 07:00] LABS: AGAP 10; BUN 17 mg/dL (8-22); CALCIUM 7.9 mg/dL (8.8-10.2); CHLORIDE 94 mmol/L (98-107); COSMO 286; POTASSIUM 3.5 mmol/L (3.5-5.1); SODIUM 140 mmol/L (136-145); TCO2 36 mmol/L (25-35)
[2016-06-28 07:24] LABS: BANDS 4 % (0-1); LYMPHS 2 % (21-51); NRBC 1 % (0-0)
[2016-06-28] MEDS: ADVAIR 500/50 DISKUS INH SCH (07:56)
[2016-06-28] MEDS: TUSSIONEX LIQUID PO SCH (09:18)
[2016-06-28] MEDS: LEXAPRO PO SCH (09:19)
[2016-06-28] MEDS: XANAX PO SCH (09:19)
[2016-06-28] MEDS: LIPITOR PO SCH (09:19)
[2016-06-28] MEDS: APRESOLINE PO SCH (09:19)
[2016-06-28] MEDS: LASIX PO SCH ×2 (09:19→23:43)
[2016-06-28] MEDS: ASPIRIN PO SCH (09:19)
[2016-06-28] MEDS: MYCOSTATIN SUSP PO SCH ×3 (09:19→17:03)
[2016-06-28] MEDS: SOLU-MEDROL IV SCH (13:53)
[2016-06-28] MEDS: MORPHINE IV PRN (14:44)
[2016-06-28] MEDS: PHENOBARBITAL IV PRN (14:46)
--- NOTE | 2016-06-28 15:02 | PALLIATIVE CARE PROGRESS NOTE ---
DATE: 06/28/2016 SUBJECTIVE: Ms. Apodaca complains of mild shortness of breath. She is asking for her ordered dose of morphine. OBJECTIVE: General: This is a 71-year-old female, who appears in mild respiratory distress. HEENT: Atraumatic, normocephalic. Neck: Trachea is midline. Cardiovascular: Increased rate. Regular rhythm. Pulmonary: Lung sounds are diminished. Scattered wheezes auscultated throughout. Abdomen: Soft. Bowel sounds are active. Extremities: Pulses are palpable. She does have 2+ pitting edema to bilateral lower extremities. Skin: She numerous bruising to bilateral arms. ASSESSMENT AND PLAN: As mentioned above, Ms. Apodaca complains of mild shortness of breath. However, she states overall she feels better than before. She has asked for her ordered dose of morphine to help relieve her shortness of breath. She states that it is effective. Ms. Apodaca remains a full code. Currently discharge plan is to rehab once a bed is available. The palliative care team will continue to follow. Dictated by KEO Lima for Declan Escobedo MD
--- NOTE | 2016-06-28 16:23 | PROGRESS NOTE ---
DATE: 06/28/2016 SUBJECTIVE: Today Ms. Apodaca referred to be doing okay. Still continued to have some residual shortness of breath. OBJECTIVE: Vital signs: Blood pressure is 136/69, pulse of 103, respirations 20, temperature 97.0 degrees. General: Ms. Apodaca is a 71-year-old female. She was sitting up in the bed in mild respiratory distress. HEENT: Mucosa is pink and moist. Anicteric. Acyanotic. Neck: Supple. Chest: Air entry is bilaterally reduced. There is prolonged expiratory phase of respiration. There are a few bibasilar crepitations and end-expiratory wheezes bilaterally as well. Cardiovascular: Regular rate and rhythm. Abdomen: Soft. Extremities: There is no pedal edema. SALVAGE INSPECTOR WOOD PARTS: Patient is alert and oriented x4. There is no focal neurological deficit. LABORATORY DATA: WBC is 10.34, hemoglobin is 9.3, platelet count of 132. There are only 4% of bands on the peripheral smear. Chemistry is reviewed and unremarkable. ASSESSMENT: 1. Acute on chronic respiratory failure. 2. Chronic obstructive pulmonary disease exacerbation. 3. Left lower lobe pneumonia. The patient has finished antibiotic use. 4. History of diastolic heart failure. 5. Anxiety disorder. PLAN: Patient is doing remarkably fine and is still pending a rehab bed for placement. My understanding is that [place] is the place that they have chosen, but she has to wait on [employer] to make a decision if patient can be sent.
[2016-06-28] MEDS: LANTUS SUBQ SCH (23:41)
[2016-06-28] MEDS: SODIUM CHLORIDE 0.9% INJ SCH (23:41)
[2016-06-28] MEDS: LOVENOX SUBQ SCH (23:44)
[2016-06-29] MEDS: MORPHINE IV PRN ×4 (00:10→21:34)
[2016-06-29] MEDS: XANAX PO SCH ×4 (00:12→21:21)
[2016-06-29] MEDS: APRESOLINE PO SCH ×4 (00:12→21:22)
[2016-06-29] MEDS: MYCOSTATIN SUSP PO SCH ×5 (00:13→21:38)
[2016-06-29] MEDS: TUSSIONEX LIQUID PO SCH ×4 (00:26→21:23)
[2016-06-29] MEDS: DUONEB (A & A) INH SCH ×6 (03:58→23:21)
[2016-06-29] MEDS: ADVAIR 500/50 DISKUS INH SCH ×2 (07:26→19:29)
[2016-06-29] MEDS: HUMULIN R SUBQ SCH ×4 (07:47→21:38)
[2016-06-29] MEDS: SOLU-MEDROL IV SCH ×2 (07:48→16:36)
[2016-06-29] MEDS: LIPITOR PO SCH ×2 (07:48→13:20)
[2016-06-29] MEDS: LEXAPRO PO SCH ×2 (07:48→13:20)
[2016-06-29] MEDS: ASPIRIN PO SCH ×2 (07:48→13:19)
[2016-06-29] MEDS: LASIX PO SCH ×3 (07:49→21:21)
--- NOTE | 2016-06-29 08:25 | Diag Imaging Result Document ---
PROCEDURE NAME: CHEST-PORTABLE - 06/29/2016 PORTABLE CHEST X-RAY: COMPARISON: 06/24/2016. FINDINGS: There is a new left PICC line in good position with the tip at the lower SVC. Lung volumes are improved. There is improvement in the left basilar atelectasis with no new infiltrates. IMPRESSION: No acute disease or complication.
--- NOTE | 2016-06-29 17:09 | PROGRESS NOTE ---
DATE: 06/29/2016 SUBJECTIVE: Today Ms. Apodaca refers to be doing okay. Continues to have residual shortness of breath but no acute changes. OBJECTIVE: Vital signs: Her vitals are stable. Blood pressure is 144/55, pulse of 105. Respiration is 20. Temperature is 97.8. General: Her exam is unchanged. Specifically, her chest exam had air entry bilaterally reduced. There is bilateral faint wheezing. LABORATORY DATA: None for today. IMAGING STUDIES: Her chest x-ray done this morning shows no acute disease or complication. There is improvement in the left basilar atelectasis with no new infiltrates. MEDICATIONS: Patient's medications include: 1. Albuterol nebulizers. 2. Aspirin. 3. Atorvastatin. 4. Lovenox. 5. Lexapro. 6. Lasix 40 b.i.d. 7. Hydralazine. 8. Lantus 10. 9. Sliding scale. 10. Methylprednisolone. ASSESSMENT: 1. Acute on chronic respiratory failure. 2. Chronic obstructive pulmonary disease exacerbation, resolved. 3. Left lower lobe pneumonia, improved. 4. History of diastolic heart failure. 5. Anxiety disorder. 6. General physical deconditioning. PLAN: We are going to get the patient up to chair and get Physical Therapy to work more with the patient. I think patient is just too reluctant, does not want to be doing a whole lot in terms of physical rehabilitation. We are going to change the methylprednisolone to p.o. prednisone at 20 mg daily. We anticipate to discharge the patient soon, as soon as there is bed space at a rehabilitation center.
[2016-06-29] MEDS: LOVENOX SUBQ SCH (21:22)
[2016-06-29] MEDS: LANTUS SUBQ SCH (21:24)
[2016-06-30] MEDS: MORPHINE IV PRN ×5 (03:12→20:53)
[2016-06-30] MEDS: DUONEB (A & A) INH SCH ×6 (03:33→23:32)
[2016-06-30] MEDS: HUMULIN R SUBQ SCH ×4 (06:08→20:58)
[2016-06-30] MEDS: ADVAIR 500/50 DISKUS INH SCH ×2 (08:06→19:24)
[2016-06-30] MEDS: XANAX PO SCH ×2 (08:48→20:41)
[2016-06-30] MEDS: LEXAPRO PO SCH (08:48)
[2016-06-30] MEDS: PREDNISONE PO SCH (08:48)
[2016-06-30] MEDS: APRESOLINE PO SCH ×2 (08:49→20:41)
[2016-06-30] MEDS: LASIX PO SCH ×2 (08:49→20:41)
[2016-06-30] MEDS: MYCOSTATIN SUSP PO SCH ×3 (08:49→20:43)
[2016-06-30] MEDS: LIPITOR PO SCH (08:49)
[2016-06-30] MEDS: ASPIRIN PO SCH (08:49)
[2016-06-30] MEDS: TUSSIONEX LIQUID PO SCH ×2 (08:50→20:40)
[2016-06-30] MEDS ORDERED: MUCINEX CHILDREN'S COUGH PO PRN (12:40)
--- NOTE | 2016-06-30 14:15 | PROGRESS NOTE ---
DATE: 06/30/2016 Today Ms. Apodaca referred to be doing okay. She continues to have some residual shortness of breath. I saw her as she was getting ready to use the bedside commode. OBJECTIVE: Vital Signs: Stable. Blood pressure 128/64, pulse of 97, respirations 24, temperature is 97.0 degrees. General: Ms. Apodaca is a 71-year-old female. She was in bed. She did not seem to be in any distress. HEENT: Mucosa is pink and moist. Anicteric. Acyanotic. Neck: Supple. Chest: Air entry is bilaterally reduced. There are a few bibasilar crepitations and phase of expiration. Abdomen: Was soft, distended but nontender. Extremities: No pedal edema. LINUX SYSTEMS ANALYST: Patient is alert and oriented x4. There is no focal neurological deficit. LABORATORY DATA: None. ASSESSMENT: 1. Acute on chronic respiratory failure. 2. COPD exacerbation, improved. 3. Left lower lobe pneumonia, resolved. 4. History of diastolic heart failure. 5. Anxiety disorder. 6. Generalized deconditioning. Will continue the patient sit up in chair. Continue with physical therapy. Antibiotics have been discontinue for now. Will continue with the prednisone and inhalers. [facility]
[2016-06-30] MEDS ORDERED: INSULIN PEN NEEDLES ONE (16:39)
[2016-06-30] MEDS: LOVENOX SUBQ SCH (20:42)
[2016-06-30] MEDS: LANTUS SUBQ SCH (20:45)
[2016-07-01] MEDS: MORPHINE IV PRN ×5 (02:18→22:03)
[2016-07-01] MEDS: DUONEB (A & A) INH SCH ×6 (03:31→23:48)
[2016-07-01] MEDS: HUMULIN R SUBQ SCH ×4 (06:05→22:02)
[2016-07-01 07:26] LABS: AGAP 9; BUN 17 mg/dL (8-22); CALCIUM 8.7 mg/dL (8.8-10.2); CHLORIDE 94 mmol/L (98-107); COSMO 281; POTASSIUM 3.7 mmol/L (3.5-5.1); SODIUM 140 mmol/L (136-145); TCO2 37 mmol/L (25-35)
[2016-07-01] MEDS: PREDNISONE PO SCH (08:00)
[2016-07-01] MEDS: LEXAPRO PO SCH (08:00)
[2016-07-01] MEDS: XANAX PO SCH ×2 (08:00→20:13)
[2016-07-01] MEDS: LIPITOR PO SCH (08:00)
[2016-07-01] MEDS: MYCOSTATIN SUSP PO SCH ×4 (08:00→20:14)
[2016-07-01] MEDS: LASIX PO SCH (08:01)
[2016-07-01] MEDS: TUSSIONEX LIQUID PO SCH ×2 (08:01→20:14)
[2016-07-01] MEDS: APRESOLINE PO SCH ×2 (08:01→20:25)
[2016-07-01] MEDS: ASPIRIN PO SCH (08:01)
[2016-07-01] MEDS ORDERED: ROBITUSSIN-DM PO PRN (08:51)
[2016-07-01] MEDS: ADVAIR 500/50 DISKUS INH SCH ×2 (09:04→20:29)
--- NOTE | 2016-07-01 14:46 | PROGRESS NOTE ---
DATE: 07/01/2016 SUBJECTIVE: Today Ms. Aopdaca referred to be doing relatively fine. She was able to sit up in a chair. Tolerated a little bit of physical rehab. OBJECTIVE: Vital Signs: Stable. Blood pressure is 136/57, pulse of 94, respirations 18, temperature 97.9 degrees. General: Ms. Apodaca is a 71-year-old female. She was sitting up in the bed, no distress. HEENT: Mucosa is pink and moist. Anicteric. Acyanotic. Neck: Supple. Chest: Air entry is bilaterally reduced. There are a few bibasilar crepitations and some prolonged phase of expiration. Abdomen: Soft, nontender. Extremities: No pedal edema. HANDLE ASSEMBLER: Patient is alert and oriented x4. LABORATORY DATA: Bicarb is 37. ASSESSMENT: 1. Acute on chronic respiratory failure. 2. Chronic obstructive pulmonary disease exacerbation, improved. 3. Left lower lobe pneumonia, resolved. 4. History of diastolic heart failure. 5. Anxiety disorder. 6. Generalized deconditioning. 7. Mild alkalosis, likely due to diuretic use. PLAN: Patient is doing relatively stable. We will continue with the current plan including physical therapy and up to chair. We will going to reduce the dose of the diuretic to only 40 once per day. We will continue with the other nebulizations and will repeat a chest x-ray for tomorrow morning. We anticipate the patient going to a rehab tomorrow morning.
[2016-07-01] MEDS: LOVENOX SUBQ SCH (20:14)
[2016-07-01] MEDS: ROBITUSSIN-DM PO PRN (20:20)
[2016-07-01] MEDS: LANTUS SUBQ SCH (20:25)
[2016-07-02] MEDS: MORPHINE IV PRN ×8 (01:11→22:13)
[2016-07-02] MEDS: DUONEB (A & A) INH SCH ×6 (04:01→23:15)
[2016-07-02] MEDS: HUMULIN R SUBQ SCH ×3 (06:38→16:29)
--- NOTE | 2016-07-02 07:43 | Diag Imaging Result Document ---
PROCEDURE NAME: CHEST-PORTABLE - 07/02/2016 SINGLE FRONTAL RADIOGRAPH OF THE CHEST: COMPARISON: 06/29/2016. FINDINGS: Left PICC line is stable. Inspiration is suboptimal. There is mild subsegmental atelectasis at the left lung base that appears more prominent than the previous study. No new consolidations are identified, otherwise. Cardiac silhouette is stable. IMPRESSION: Lower lung volumes and slight increase in atelectasis at the left lung base. Otherwise, stable chest.
[2016-07-02] MEDS: ADVAIR 500/50 DISKUS INH SCH ×2 (07:47→19:30)
[2016-07-02] MEDS: TUSSIONEX LIQUID PO SCH ×2 (09:04→22:12)
[2016-07-02] MEDS: LEXAPRO PO SCH (09:04)
[2016-07-02] MEDS: APRESOLINE PO SCH ×2 (09:04→22:14)
[2016-07-02] MEDS: ASPIRIN PO SCH (09:04)
[2016-07-02] MEDS: XANAX PO SCH (09:04)
[2016-07-02] MEDS: PREDNISONE PO SCH (09:04)
[2016-07-02] MEDS: LASIX PO SCH (09:04)
[2016-07-02] MEDS: LIPITOR PO SCH (09:04)
[2016-07-02] MEDS: MYCOSTATIN SUSP PO SCH ×4 (09:05→22:15)
--- NOTE | 2016-07-02 16:40 | PROGRESS NOTE ---
DATE: 07/02/2016 SUBJECTIVE: Today Ms. Apodaca referred to be doing okay. She has been tolerating some level of physical therapy. OBJECTIVE: Vital Signs: Stable. Blood pressure is 152/77, pulse of 105, respiration is 20, temperature 98 degrees. The patient is saturating 98% on 2 L. General: Ms. Apodaca is a 71- year-old female. She was in bed. Not in any respiratory distress. HEENT: Mucosa is pink and moist. Anicteric and acyanotic. Neck: Supple. Chest: Air entry is bilaterally reduced. There are a few wheezes and a prolonged phase of expiration. Abdomen : Soft, nontender. Distended bowel sounds are present. Extremities: No pedal edema. FLOUR BLENDER: Patient is alert and oriented x4. There is no focal neurological deficit. LABORATORY DATA: None for today. A chest x-ray which was done today shows lower lung volumes and slight atelectasis. ASSESSMENT: 1. Acute on chronic respiratory failure. 2. Chronic obstructive pulmonary disease exacerbation. This is resolved. 3. Left lower lobe pneumonia. This is resolved. Patient has completed the course of antibiotics. 4. History of diastolic heart failure. 5. Anxiety disorder with some tremors. 6. Generalized deconditioning. GENERAL PLAN: 1. Ms. Apodaca has been in the hospital for the past 31 days. Clinically, she is now stable to be discharged. However, she has generalized deconditioning and my understanding is that her insurance will not pay if she is not very actively doing some rehab in the hospital. The patient feels very reluctant to be doing rehab because she states that wears her out. I have counseled her again and social work has also talked with her that if she does not work with physical therapy to get her to rehab, then we would have no choice than to send her home. According to her, she has been working on her own. We will be pending rehab evaluation today again to see if she is making any remarkable progress. 2. For now, we are going to reduce patient steroids from 20 to 10 with intention to discontinue this in about 2 days if she is still here in the hospital. MTDD
[2016-07-02] MEDS: LANTUS SUBQ SCH (22:12)
[2016-07-03] MEDS: XANAX PO SCH (03:07)
[2016-07-03] MEDS: DUONEB (A & A) INH SCH ×6 (03:25→23:13)
[2016-07-03] MEDS: MORPHINE IV PRN ×7 (07:00→21:37)
[2016-07-03] MEDS: ROBITUSSIN-DM PO PRN (07:01)
[2016-07-03] MEDS: ADVAIR 500/50 DISKUS INH SCH ×2 (07:17→20:29)
[2016-07-03] MEDS: HUMULIN R SUBQ SCH ×5 (07:33→21:38)
[2016-07-03] MEDS: LEXAPRO PO SCH (10:58)
[2016-07-03] MEDS: PREDNISONE PO SCH (10:59)
[2016-07-03] MEDS: LIPITOR PO SCH (10:59)
[2016-07-03] MEDS: LASIX PO SCH (10:59)
[2016-07-03] MEDS: ASPIRIN PO SCH (10:59)
[2016-07-03] MEDS: APRESOLINE PO SCH ×2 (11:00→21:38)
[2016-07-03] MEDS: MYCOSTATIN SUSP PO SCH ×4 (11:01→21:39)
[2016-07-03] MEDS: TUSSIONEX LIQUID PO SCH ×2 (11:04→21:36)
--- NOTE | 2016-07-03 15:21 | DISCHARGE SUMMARY ---
ADMISSION DATE: 06/01/2016 DISCHARGE DATE: CONSULTATIONS: Dr. Ramon Han with pulmonology. Dr. Declan Escobedo and KEO Lima, with palliative care. PERTINENT PROCEDURES: 1. Chest x-ray showed increased interstitial markings likely representing mild pulmonary edema. Suspect fibrosis in the upper right lung, emphysema. 2. Echocardiogram shows an EF of 60% or greater. 3. Chest CT showed COPD with pneumonitis or early pneumonia in the right lower lobe. 4. Abdomen and pelvis CT showed no evidence of acute disease in the abdomen. 5. CT showed no definite abnormality in the neck. DISCHARGE DIAGNOSES: 1. Acute on chronic respiratory failure. 2. Chronic obstructive pulmonary disease exacerbation, resolved. 3. Left lower lobe pneumonia, resolved. The patient has completed a full course of antibiotics. 4. Diastolic heart failure history. 5. Anxiety disorder with tremors. [facility]. 6. Generalized deconditioning. The patient did work with PT. She will be going to rehab in [place]. HOSPITAL COURSE: Briefly, please refer to full history and physical. Ms. Apodaca is a 71-year- old female with a history of COPD on home O2, congestive heart failure, hypertension, hyperlipidemia, presented with severe shortness of breath. She was being treated for pneumonia with oral antibiotics by Dr. Darnell since the end of April, I believe, and she has not had any relief from her shortness of breath. She had increased cough with yellow sputum production. Patient also complained of severe throat pain, difficulty swallowing, and throat fullness. She has been unable to eat or drink anything secondary to throat pain. When she arrived in the ED she was in significant respiratory distress requiring BiPAP. Initial ABG showed mild respiratory acidosis, breathing 30-40 times a minute. She was admitted to the ICU with a pulmonology consult, as well was started on IV antibiotics for her failed outpatient community-acquired pneumonia, as well as bronchodilators and IV steroids for her COPD exacerbation. CT of the neck did not show anything acute. Her BiPAP was weaned to nasal cannula as per pulmonology. Her blood gas improved. Again, recommended evaluation of the right upper lobe chest mass with fiberoptic bronchoscopy or a CT-directed needle biopsy. It was fairly suggestive of a neoplasm. This has been discussed with the family. Patient was moved out of the ICU. She started working with physical therapy. Patient had continued complaints of dyspnea. Palliative care was brought in. They visited with her on several occasions. Social Work was also brought in for rehab placement. The patient agreed to rehab. She states that her dyspnea improved. However, she continued to be short of breath even with conversation or any slight exertion with physical therapy. She did feel like she is getting stronger with physical therapy. The patient has been appropriate for discharge for several days now, it was just pending insurance approval. Initially she had been denied for rehab in [place]. However, after talking with Dr. Cavazos and after re-evaluating the patient today after physical therapy, she was sitting up in a chair in a tripod position, pursed lip breathing with her oxygen on, and Ms. Apodaca along with Dr. Cavazos felt that she would not be able to go home and care for herself even with home health and physical therapy. The patient actually became quite tearful. We spoke again with the social human services assistants. Advised them that we would need to speak with the insurance company again because there was no way that the patient could safely be discharged home in her condition, that she would need to continue to work with rehab where she could be monitored closely. [facility] has approved for discharge to [facility] [facility] today. VITAL SIGNS: At the time discharge, temperature is 98.4 degrees, heart rate 103, respirations 24, blood pressure is 128/63, O2 is 100% on 2 L nasal cannula. DISCHARGE DIET: Mechanical soft. DISCHARGE MEDICATIONS: 1. Aspirin 81 mg p.o. daily. 2. Lexapro 5 mg p.o. daily. 3. Lipitor 80 mg p.o. daily. 4. Spiriva 1 puff inhaled daily. 5. Xanax 0.25 mg p.o. b.i.d. 6. Calmoseptine ointment 1 g topical p.r.n. 7. Robitussin DM 10 mL p.o. q.4 hours p.r.n. 8. Advair 550 Diskus 1 puff inhaled RT b.i.d. 9. 2 mg p.o. b.i.d. 10. DuoNeb 3 mL inhaled RT q.4 hours. 11. Lantus 10 units subcutaneously at bedtime. 12. Lasix 40 mg p.o. daily. 13. Mycostatin suspension 5 mL p.o. 4 times a day. 14. Prednisone 10 mg p.o. daily. FOLLOWUP: The patient is being discharged to a rehab facility in [place]. She will follow up with her primary care physician as well as Dr. Escobedo. She will also need to have either a bronchoscopy or a CT-guided biopsy of the mass found on CT scan. This has been discussed with the patient and the son as per pulmonology. Patient can return as needed for any worsening of symptoms. DISCHARGE TIME: Greater than 40 minutes. Dictated by KEO Diallo for Joseph Cavazos MD
--- NOTE | 2016-07-03 17:33 | PROGRESS NOTE ---
DATE: 07/03/2016 SUBJECTIVE: Ms. Apodaca is sitting up in a chair. She has pursed lip breathing. She just finished working with physical therapy. OBJECTIVE: Vital Signs: Temperature is 98.4 degrees, heart rate 103, respirations 24, blood pressure 128/63, O2 is 100% on nasal cannula. General: Ms. Apodaca is a 71-year-old, female. She is sitting up in the chair with pursed lip breathing. HEENT: Atraumatic, normocephalic. PERRL. Neck: Supple. Trachea midline. Cardiovascular: S1, S2 appreciated. Regular rate and rhythm. Pulmonary: Bilaterally patient has reduced airway injury. Abdomen: Soft, nontender, nondistended. Positive bowel sounds. Extremities: No pedal edema. Neurologic: Patient is alert and oriented. No focal deficits noted. LABORATORY DATA: No new laboratory data. DIAGNOSTIC DATA: No new diagnostic data. ASSESSMENT AND PLAN: 1. Acute on chronic respiratory failure. 2. 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 3. Left lower lobe pneumonia resolved. 4. History of diastolic heart failure. 5. Anxiety disorder with tremors. 6. Generalized deconditioning. Patient working with PT. She has been denied rehabilitation per her insurance. Her daughter has a meeting with [facility] at 11 a.m. It appears at this time that patient's only other option would be to go home with home health and PT, however, we will await the daughter's meeting with [facility] and then from there we will discuss with the patient going home on hospice due to her end-stage COPD. Patient is not able to work much with PT. She states that she cannot walk 30 feet especially if she goes home by herself. She will not be able to complete a lot of her ADLs. We have talked with social work about this also and we are going to await the meeting with Zula. Dr. Cavazos is also aware and has spoken with the patient. 7. Disposition. Either [facility], however, she was already denied from [facility] for rehabilitation in [place]. Question home with hospice. Further recommendations to follow physician evaluation. Dictated by KEO Diallo for Joseph Cavazos MD
[2016-07-03] MEDS: LANTUS SUBQ SCH (21:37)
[2016-07-04] MEDS: DUONEB (A & A) INH SCH ×3 (04:00→11:35)
[2016-07-04] MEDS: ROBITUSSIN-DM PO PRN (05:55)
[2016-07-04] MEDS: MORPHINE IV PRN ×3 (05:55→11:23)
[2016-07-04] MEDS: HUMULIN R SUBQ SCH ×2 (06:40→11:26)
[2016-07-04 07:42] VITALS: BP 121/70
[2016-07-04] MEDS: ADVAIR 500/50 DISKUS INH SCH (07:54)
[2016-07-04] MEDS: TUSSIONEX LIQUID PO SCH (08:07)
[2016-07-04] MEDS: APRESOLINE PO SCH (08:07)
[2016-07-04] MEDS: LASIX PO SCH (08:07)
[2016-07-04] MEDS: PREDNISONE PO SCH (08:07)
[2016-07-04] MEDS: MYCOSTATIN SUSP PO SCH (11:26)
--- NOTE | 2016-08-10 09:56 | DISCHARGE SUMMARY ---
ADMISSION DATE: 06/01/2016 DISCHARGE DATE: 07/04/2016 DISCHARGE SUMMARY ADDENDUM: The patient was admitted with pneumonia. Clinical indications at the time of admission included a temperature. White blood cell count was 14,890. Pulse was 130. Respiratory rate was 45. Lactate was 1.30. Documentation in the H P and Progress Note stated sepsis treated with IV Zosyn, IV Levaquin, and IV vancomycin. The diagnosis of sepsis is not mentioned in the Discharge Summary. Yes, it should have been mentioned. The patient presented with sepsis due to pneumonia. So, the patient had sepsis due to pneumonia.
== END 2016-07-04 12:34 | DRG 871 ==
LOC: ED 11:26 → ICU 16:52 → 3N 06-13 16:27
PROVIDERS: ATTEND Emergency Medicine
PROC: 3E0336Z Introduction of Nutritional Substance into Peripheral Vein, Percutaneous Approach (ICD-10-PCS; principal; 2016-06-05)
DX: A41.9 Sepsis, unspecified organism (principal); J96.22 Acute and chronic respiratory failure with hypercapnia; J96.21 Acute and chronic respiratory failure with hypoxia; I50.33 Acute on chronic diastolic (congestive) heart failure; E87.3 Alkalosis; J18.9 Pneumonia, unspecified organism; I11.0 Hypertensive heart disease with heart failure; E46 Unspecified protein-calorie malnutrition; J44.0 Chronic obstructive pulmonary disease with (acute) lower respiratory infection; J44.1 Chronic obstructive pulmonary disease with (acute) exacerbation; Z99.81 Dependence on supplemental oxygen; E11.65 Type 2 diabetes mellitus with hyperglycemia; E78.5 Hyperlipidemia, unspecified; J45.909 Unspecified asthma, uncomplicated; E66.9 Obesity, unspecified; R91.8 Other nonspecific abnormal finding of lung field; R07.0 Pain in throat; F41.9 Anxiety disorder, unspecified; F43.21 Adjustment disorder with depressed mood; T50.1X5A Adverse effect of loop [high-ceiling] diuretics, initial encounter; Z79.899 Other long term (current) drug therapy; Z79.82 Long term (current) use of aspirin; Z79.52 Long term (current) use of systemic steroids; Z68.26 Body mass index [BMI] 26.0-26.9, adult; Z87.891 Personal history of nicotine dependence; Z80.1 Family history of malignant neoplasm of trachea, bronchus and lung; Z86.73 Personal history of transient ischemic attack (TIA), and cerebral infarction without residual deficits
CPT/HCPCS: 36569; 51702; 70491; 71010; 71020; 71260; 74177; 80048; 80053; 80202; 81001; 82550; 82553; 82607; 82746; 82805; 82948; 83036; 83605; 83735; 83880; 84100; 84439; 84443; 84484; 85025; 85027; 85379; 85610; 85730; 87040; 87070; 87081; 87205; 87430; 87804; 93005; 93308; 94640; 94660; 94760; 94761; 94762; 96365; 96375; C9113; J1100; J1650; J1940; J2060; J2270; J2543; J2560; J2920; J2930; J3370; J7030; J7050; J7070; J7512; Q9967; 97110-GO; 97110-GP; 97530-GO; 97530-GP; 97535-GO; S0164